=== PATIENT | male | born 1950 | race Caucasian/White ===

== ENCOUNTER → 2018-12-04 16:26 | Outpatient (CLI) | payer MEDICARE, OTHER, SELFPAY ==
[2018-12-04 18:22] LABS: Hematocrit 44.3 % (40-54); Mean Corp Hgb Conc 33.9 g/dL (32-36); Mean Corpuscular Hgb 30.9 pg (27.0-32.0); Mean Corpuscular Volume 91.2 fL (80-94); Mean Platelet Vol. 11.3 fl (6.2-12.0); Platelet Count 178 K/mm3 (150-450); RBC Distribution Width CV 12.9 % (11.6-14.6); RBC Distribution Width SD 42.9 fl (35.1-43.9); Red Blood Count 4.86 M/mm3 (4.6-6.2); White Blood Count 7.4 K/mm3 (4.4-11.0)
[2018-12-04 18:44] LABS: BUN 16 mg/dL (7-18); Glucose 88 mg/dL (74-106)
[2018-12-04 18:45] LABS: Anion Gap 3 (5-15); BUN/Creat Ratio 16.1 RATIO (10-20); Chloride 107 mmol/L (98-107); EST Glomerular Filtration Rate 79 mL/min (>60); Est Glom Filt Rate - Afr Amer 95 mL/min (>60); PSA,Total - Annual Screen 1.46 ng/mL (0.00-4.00); Potassium 5.4 mmol/L (3.5-5.1); Sodium Level 135 mmol/L (136-145)
== END ==
PROVIDERS: Family Provider Family Medicine; PCP Family Medicine; Visit Provider Family Medicine
DX: Z13.220 Encounter for screening for lipoid disorders (principal); Z12.5 Encounter for screening for malignant neoplasm of prostate; J44.9 Chronic obstructive pulmonary disease, unspecified
CPT/HCPCS: 36415; 80048; 84153; 85027; G0103

== ENCOUNTER → 2019-01-03 10:45 | Outpatient (CLI) | payer MEDICARE, OTHER, SELFPAY ==
[2019-01-03 09:52] VITALS: BMI 20.2
[2019-01-03 12:10] LABS: AST(SGOT) 19 U/L (15-37); Alanine Aminotransfer ALT/SGPT 17 U/L (16-61); Albumin, Serum 3.7 g/dL (3.2-5.0); Alkaline Phosphatase 90 U/L (45-117); Bilirubin, Direct 0.14 mg/dL (0.00-0.30); Cholesterol 178 mg/dL (200); Globulin 3.9 g/dL (2.2-4.2); High Density Lipoprotein 50 mg/dL; Protein, Total 7.6 g/dL (6.4-8.2); Triglycerides 80 mg/dL; Very Low Density Lipoprotein 16 mg/dL (5-40)
== END ==
PROVIDERS: Family Provider Family Medicine; PCP Family Medicine; Referring Provider Internal Medicine Cardiovascular Disease; Visit Provider Internal Medicine Cardiovascular Disease
DX: R94.31 Abnormal electrocardiogram [ECG] [EKG] (principal); F17.200 Nicotine dependence, unspecified, uncomplicated
CPT/HCPCS: 36415; 80061; 80076

== ENCOUNTER → 2019-02-12 07:50 | Outpatient (CLI) | payer MEDICARE, OTHER, SELFPAY ==
[2019-01-03 09:52] VITALS: BMI 20.2
--- NOTE | 2019-02-12 07:51 | ECHOD_ITS ---
Reason For Study: ARRHYTHMIA Procedure This was a 2D Doppler, Color Flow transthoracic echocardiogram. Exam performed in department. Left Ventricle Normal LV size. Left ventricular systolic function is normal. The estimated ejection fraction is 60 %. Stage 1 diastolic dysfunction. No regional wall motion abnormalities noted. Right Ventricle Normal RV size. Normal systolic function. Atria Normal left atrium. Normal right atrium. Mitral Valve Normal mitral valve. Tricuspid Valve Normal tricuspid valve. Aortic Valve Normal aortic valve. Pulmonic Valve Normal pulmonic valve. Great Vessels Normal aortic root. The pulmonary artery is normal size. Normal inferior vena cava. Pericardium/Pleural No pericardial effusion. MMode/2D Measurements & Calculations LVIDd: 4.5 cm IVSd: 0.79 cm Ao root diam: 3.4 cm LVIDs: 3.2 cm LVPWd: 0.79 cm RVDd: 3.3 cm FS: 29.0 % LAV(MOD-bp): 45.9 ml LA A4 area: 15.2 cm2 LA dimension(2D): 2.7 cm LAV(MOD-bp) Indexed: 25.5 ml/m2 LAV(MOD-sp2): 59.1 ml LAV(MOD-sp4): 35.9 ml RA A4 area: 15.0 cm2 Time Measurements MV dec time: 0.37 sec Doppler Measurements & Calculations MV E max yuriy: 41.0 cm/sec Lat Peak E' Yuriy: 10.8 cm/sec Med Peak E' Yuriy: 8.8 cm/sec MV A max yuriy: 35.2 cm/sec E/E' lat: 3.8 E/E' med: 4.6 MV E/A: 1.2 Ao V2 max: 93.5 cm/sec LV V1 max: 78.7 cm/sec TR max yuriy: 195.2 cm/sec Ao max P.5 mmHg LV V1 max P.5 mmHg TR max P.4 mmHg Interpretation Summary Normal LV size. Left ventricular systolic function is normal. The estimated ejection fraction is 60 %. Stage 1 diastolic dysfunction. Structurally normal valves. Ordering Physician: Rubén Catherine Referring Physician: NATIVIDAD FIGUEROA Performed By: Patricia Baeza, KANE, RVT
--- NOTE | 2019-02-12 19:17 | STRESSREP_ITS ---
Stress Test Report Exercise myocardial perfusion stress test. 68-year-old man with a history of coronary artery risk factors. Exercise myocardial perfusion stress test. Resting EKG demonstrates normal sinus rhythm with a rate of 51 bpm normal intervals are noted resting blood pressures 106/70 mmHg. The patient exercised according to regular Kb protoc ol for total duration of 9 minutes and 15 seconds completing 15 seconds into stage IV of the Kb protocol. The maximum heart rate attained was 136 bpm which was 90% of maximum predicted heart rate the maximum workload was 10.5 metabolic equivalents. At rest there were no ST or T wave changes noted suggest ischemia peak exercise upsloping ST changes only were noted with no meet the criteria for ischemia. The resting blood pressures 106/70 mmHg with a peak blood pressure 162/80 mmHg the rate pressure product was 20,800. No clinical angina was noted the patient was noted to be short of breath and the test was terminated due to attainment of target heart rate. Myocardial perfusion protocol. 11.0 mCi of technetium 99m sestamibi was injected at rest. Patient exercised for 9 minutes and 15 seconds and at peak exercise 32.0 mCi of technetium 99m sestamibi was injected stress images were obtained stress and rest images were reconstructed in comparing the short axis vertical and horizontal long axis. Gated images were also obtained Perfusion SPECT analysis: Review of the stress images demonstrate normal uptake of tracer noted in all areas of myocardium the resting images similar demonstrate normal uptake of tracer noted in all areas of the myocardium. No areas of reversibility are noted suggest ischemia no previous infarct is noted. Gated SPECT analysis: The gated ejection fraction is noted to be 71%. Conclusion: Normal exercise myocardial perfusion stress test with no evidence of ischemia at a high workload. Excellent functional capacity. No clinical angina noted.
== END ==
PROVIDERS: Family Provider Family Medicine; PCP Family Medicine; Referring Provider Internal Medicine Cardiovascular Disease; Visit Provider Internal Medicine Cardiovascular Disease
DX: I25.10 Atherosclerotic heart disease of native coronary artery without angina pectoris (principal); R94.31 Abnormal electrocardiogram [ECG] [EKG]; F17.200 Nicotine dependence, unspecified, uncomplicated
CPT/HCPCS: 78452; 93017; 93306; A9500; A4216

== ENCOUNTER → 2019-03-02 07:51 | Outpatient (CLI) | payer MEDICARE, OTHER, SELFPAY ==
[2019-01-03 09:52] VITALS: BMI 20.2
--- NOTE | 2019-03-02 07:53 | CT_ITS ---
STUDY: LOW DOSE CT LUNG CANCER SCREENING REASON FOR EXAM: Male, 68 years old. Patient smokes 1 pack per day for 50 years. Shortness of breath. Occasional chest pain. RADIATION DOSAGE (If Supplied By Facility): CTDIvol = ( 3.02 ) mGy, DLP = ( 129.83 ) mGycm TECHNIQUE: No contrast was administered. Low dose technique was utilized (average mAS-38 and kVp 120). 1.25 mm axial source images with a slice interval of 1.25-mm were reconstructed in lung windows. 2.5 mm axial source images with a slice interval of 2.5-mm were reconstructed in lung windows. 5.0 mm axial source images with a slice interval of 5.0-mm were reconstructed in soft tissue windows. Nodule measured using lung windows on PACS and/or independent workstation with automated measurement of minimum and maximum diameter. Nodule measurement reported as average diameter rounded to the nearest whole number. Growth is defined as an increase ins size of greater than 1.5 mm. COMPARISON: Comparison is made with prior study dated January 06, 2015. NODULES: Stable scarring with bronchiectasis in the upper lobes slightly more prominent on the left side. Stable 7 mm nodule in the medial aspect of the left upper lobe as seen on axial image #47. Stable 8.4 mm nodule along the posterior aspect of the left upper lobe as seen on axial image #49. These most likely represent focal areas of fibrosis. Enlargement of the thyroid gland. Emphysema: Hyperinflation. Emphysematous changes with bullous formation more prominent in the upper lobes. Endobronchial lesion: None Aorta: Atherosclerotic plaque formation of the aortic arch. Coronary arteries: Coronary artery calcification. Heart: Unremarkable Mediastinal nodes: Small mediastinal lymph nodes. Other chest and abdominal findings: CT/Low Dose CT Lung Screening IMPRESSION: Lung-RADS category 2 - Continue annual screening with LDCT in 12 months. IMPORTANT NOTES FOR USE: ACR Lung-RADS Version 1.0 Assessment Categories Release Date: August 20, 2013 Category: Coded 0-4 bases on nodule(s) with highest degree of suspicion. Negative screen is defined as categories 1 and 2; a positive screen is defined as categories 3 and 4. Category 3 and 4A nodules that are unchanged on interval CT should be coded as category 2, and individuals returned to screening in 12 months. Category 4X: Category 3 or 4 nodules with additional imaging findings that increase the suspicion of lung cancer, such as spiculation, GGN that doubles in size in 1 year, enlarged lymph notes, etc. Category Modifiers: S (significant finding unrelated to lung cancer) and C (prior history of treated lung cancer) may be added to the 0-4 Lung-RADS Electronically Signed: Santana Jeronimo, at 13:09 EST , Service support ,
== END ==
PROVIDERS: Family Provider Family Medicine; PCP Family Medicine; Referring Provider Family Medicine; Visit Provider Family Medicine
DX: Z12.2 Encounter for screening for malignant neoplasm of respiratory organs (principal); Z87.891 Personal history of nicotine dependence; R06.02 Shortness of breath
CPT/HCPCS: G0297

== ENCOUNTER → 2019-03-09 11:51 | Outpatient (CLI) | payer MEDICARE, OTHER, SELFPAY ==
[2019-01-03 09:52] VITALS: BMI 20.2
--- NOTE | 2019-03-09 11:54 | US_ITS ---
STUDY: THYROID ULTRASOUND REASON FOR EXAM: Male, 68 years old. Thyromegaly TECHNIQUE: Ultrasound evaluation of the thyroid was performed with real-time and static wilson-scale imaging. COMPARISON: None. FINDINGS: RIGHT LOBE: The right lobe of the thyroid gland measures 6.1 x 2.9 x 3.1 cm. There is a homogeneous echotexture. There are no demonstrated solid, cystic or complex lesions. LEFT LOBE: The left lobe of the thyroid gland measures 6.0 x 2.3 x 3.2 cm. There is a homogeneous echotexture. There are no demonstrated solid, cystic or complex lesions. ISTHMUS: The isthmus measures 5 mm. The regional lymph nodes are normal. US/Thyroid IMPRESSION: Enlargement of the thyroid without nodules. Electronically Signed: Mike Downs DO at 9:17 EST Tel [phone], Service support ,
== END ==
PROVIDERS: Family Provider Family Medicine; PCP Family Medicine; Referring Provider Family Medicine; Visit Provider Family Medicine
DX: E01.0 Iodine-deficiency related diffuse (endemic) goiter (principal)
CPT/HCPCS: 76536

== ENCOUNTER → 2019-04-04 14:31 | Outpatient (CLI) | payer MEDICARE, OTHER, SELFPAY ==
[2019-04-04 14:36] LABS: Bacteria 0 SEEN /hpf (None Seen); Mucous, Urine 0 SEEN /hpf (<or=2+); Red Blood Cells-Urine 0 SEEN /hpf (0-5); Squamous Epithelial Cells - UA 0 SEEN /hpf (0-5); White Blood Cells 0 SEEN /hpf (0-5)
[2019-04-04 15:52] LABS: Absolute Lymphocyte Count 3.49 X10^3/uL (0.83-4.51); Absolute Neutrophil Count 3.4 X10^3/uL (2.0-7.7); Basophil# 0.05 X10^3/uL; Basophil% 0.6 % (0-1); Eosinophil# 0.24 X10^3/uL; Hematocrit 44.6 % (40-54); Hemoglobin 14.9 g/dL (13.0-16.5); Lymphocyte # 3.49 X10^3/ul (4.0); Lymphocyte % 44.3 % (19-41); Mean Corp Hgb Conc 33.4 g/dL (32-36); Mean Corpuscular Hgb 30.4 pg (27.0-32.0); Mean Platelet Vol. 11.4 fl (6.2-12.0); Monocyte# 0.68 X10^3/uL; Monocyte% 8.6 % (0-10); NRBC Flagged by Analyzer 0 % (0-5); Neutrophil # 3.39 X10^3/uL (2.7-7.7); Neutrophil % 43.2 % (47-70); Platelet Count 177 K/mm3 (150-450); RBC Distribution Width SD 43.2 fl (35.1-43.9); White Blood Count 7.9 K/mm3 (4.4-11.0)
[2019-04-04 16:23] LABS: ALB/GLOB Ratio 1.1 RATIO (0.9-2.4); AST(SGOT) 22 U/L (15-37); Alanine Aminotransfer ALT/SGPT 18 U/L (16-61); Albumin, Serum 3.7 g/dL (3.2-5.0); Alkaline Phosphatase 75 U/L (45-117); Anion Gap 6 (5-15); BUN 13 mg/dL (7-18); BUN/Creat Ratio 14.5 RATIO (10-20); Calcium,Total 8.7 mg/dL (8.5-10.1); Chloride 107 mmol/L (98-107); Cholesterol 146 mg/dL (200); EST Glomerular Filtration Rate 89 mL/min (>60); Est Glom Filt Rate - Afr Amer 108 mL/min (>60); Globulin 3.5 g/dL (2.2-4.2); Glucose 80 mg/dL (74-106); High Density Lipoprotein 53 mg/dL; Potassium 4.1 mmol/L (3.5-5.1); Protein, Total 7.2 g/dL (6.4-8.2); Sodium Level 138 mmol/L (136-145); T4 Free Direct 1.13 ng/dL (0.76-1.46); Thyroid Stim Hormone (TSH) 0.53 uIU/mL (0.358-3.74); Triglycerides 74 mg/dL; Very Low Density Lipoprotein 15 mg/dL (5-40)
[2019-04-04 18:01] LABS: Color, Urine Yellow (Yellow); Glucose, Dipstick Normal (Normal); Ketone-Dipstick Negative (Negative); Leukocyte Esterase-Dipstick Negative /ul (Negative); Nitrite-Dipstick Negative (Negative); Occult Blood-Urine Negative /ul (Negative); Protein-Dipstick Negative (Negative); Urine Bilirubin Dipstick Negative (Negative); Urine Clarity Clear (Clear); Urine Urobilinogen Normal (Normal)
[2019-04-06 17:07] LABS: Anti-Thyroglobulin AB < 1.0 IU/mL (0.0-0.9); Thyroglobulin, Serum Qt. 21.7 ng/mL (1.4-29.2); Thyroid Peroxidase AB 12 IU/mL (0-34)
== END ==
PROVIDERS: Family Provider Family Medicine; PCP Family Medicine; Referring Provider Family Medicine; Visit Provider Family Medicine
DX: E01.0 Iodine-deficiency related diffuse (endemic) goiter (principal); I65.29 Occlusion and stenosis of unspecified carotid artery; F17.200 Nicotine dependence, unspecified, uncomplicated; J44.9 Chronic obstructive pulmonary disease, unspecified
CPT/HCPCS: 36415; 80053; 80061; 81001; 84432; 84439; 84443; 85025; 86376; 86800

== ENCOUNTER → 2019-05-31 13:55 | Outpatient (CLI) | payer MEDICARE, SELFPAY ==
[2019-05-31 16:05] LABS: Cholesterol 161 mg/dL (200); High Density Lipoprotein 52 mg/dL; Triglycerides 68 mg/dL; Very Low Density Lipoprotein 14 mg/dL (5-40)
== END ==
PROVIDERS: PCP Family Medicine; Referring Provider Family Medicine; Visit Provider Family Medicine
DX: I65.29 Occlusion and stenosis of unspecified carotid artery (principal)
CPT/HCPCS: 36415; 80061

== ENCOUNTER → 2019-10-22 10:22 | Outpatient (CLI) | payer MEDICARE, SELFPAY ==
[2019-10-22 10:26] LABS: Bacteria 0 SEEN /hpf (None Seen); Red Blood Cells-Urine 0 SEEN /hpf (0-5); Squamous Epithelial Cells - UA 0 SEEN /hpf (0-5); White Blood Cells 0 SEEN /hpf (0-5)
[2019-10-22 12:05] LABS: Absolute Lymphocyte Count 2.86 X10^3/uL (0.83-4.51); Absolute Neutrophil Count 4.1 X10^3/uL (2.0-7.7); Basophil# 0.03 X10^3/uL; Basophil% 0.4 % (0-1); Eosinophil# 0.35 X10^3/uL; Eosinophils% 4.3 % (0-5); Hematocrit 46.7 % (40-54); Hemoglobin 15.7 g/dL (13.0-16.5); Lymphocyte # 2.86 X10^3/ul (4.0); Mean Corp Hgb Conc 33.6 g/dL (32-36); Mean Corpuscular Hgb 31.1 pg (27.0-32.0); Mean Corpuscular Volume 92.5 fL (80-94); Mean Platelet Vol. 11.9 fl (6.2-12.0); Monocyte# 0.79 X10^3/uL; Monocyte% 9.7 % (0-10); NRBC Flagged by Analyzer 0 % (0-5); Neutrophil # 4.11 X10^3/uL (2.7-7.7); Neutrophil % 50.2 % (47-70); Platelet Count 150 K/mm3 (150-450); RBC Distribution Width SD 43.4 fl (35.1-43.9); Red Blood Count 5.05 M/mm3 (4.6-6.2); White Blood Count 8.2 K/mm3 (4.4-11.0)
[2019-10-22 12:17] LABS: AST(SGOT) 18 U/L (15-37); Alanine Aminotransfer ALT/SGPT 20 U/L (16-61); Albumin, Serum 3.6 g/dL (3.2-5.0); Alkaline Phosphatase 77 U/L (45-117); Anion Gap 4 (5-15); BUN 13 mg/dL (7-18); Chloride 105 mmol/L (98-107); Cholesterol 137 mg/dL (200); Creatinine, Serum 0.93 mg/dL (0.70-1.30); EST Glomerular Filtration Rate 86 mL/min (>60); Est Glom Filt Rate - Afr Amer 103 mL/min (>60); Globulin 3.7 g/dL (2.2-4.2); Glucose 92 mg/dL (74-106); High Density Lipoprotein 45 mg/dL; Potassium 4.1 mmol/L (3.5-5.1); Protein, Total 7.3 g/dL (6.4-8.2); Sodium Level 137 mmol/L (136-145); Triglycerides 80 mg/dL; Very Low Density Lipoprotein 16 mg/dL (5-40)
[2019-10-22 15:38] LABS: Color, Urine Yellow (Yellow); Glucose, Dipstick Normal (Normal); Ketone-Dipstick 5 mg/dl (Negative); Leukocyte Esterase-Dipstick Negative /ul (Negative); Nitrite-Dipstick Negative (Negative); Occult Blood-Urine Negative /ul (Negative); Protein-Dipstick Negative (Negative); Urine Bilirubin Dipstick Negative (Negative); Urine Clarity Clear (Clear); Urine Urobilinogen Normal (Normal)
[2019-10-22 15:45] LABS: Mucous, Urine 1+ /hpf (<or=2+)
== END ==
PROVIDERS: PCP Family Medicine; Visit Provider Family Medicine
DX: I65.29 Occlusion and stenosis of unspecified carotid artery (principal); F17.200 Nicotine dependence, unspecified, uncomplicated
CPT/HCPCS: 80053; 80061; 81001; 85025

== ENCOUNTER → 2020-02-13 08:51 | Outpatient (CLI) | payer MEDICARE, SELFPAY ==
--- NOTE | 2020-02-13 08:52 | AAVD_ITS ---
Reason For Study: AAA Aorta Measurements Aorta Doppler Measurements Proximal aorta measures2.0 X 2.3cm. in cross- Peak systolic flow velocities within the proximal sectional axis. aorta measure 85 cm/sec. Proximal aorta measures2.3cm. in longitudinal Peak systolic flow velocities within the mid aorta axis. measure 60 cm/sec. Mid aorta measures2.4 X 2.4cm. in cross-sectional Peak systolic flow velocities within the distal axis. aorta measure 20 cm/sec. Mid aorta measures2.3cm. in longitudinal axis. Distal aorta measures4.0 X 4.2cm. in cross- sectional axis. Distal aorta measures4.0cm. in longitudinal axis. Left Iliac Artery Left iliac artery measures 1.2 X 1.2 cm. in the longitudinal axis. Left iliac artery measures 1.2 cm. in the cross-sectional axis. Peak systolic velocity in the left iliac artery measures 359 cm/sec. Right Iliac Artery Right iliac artery measures 1.4 X 1.4 cm. in the longitudinal axis. Right iliac artery measures 1.3 cm. in the cross-sectional axis. Peak systolic velocity in the right iliac artery measures 282 cm/sec. Procedure Aorta IVC Iliac vasculature or bypass grafts [id number]. Exam performed in department. Interpretation Summary Distal aortic aneurysm 4 x 4.2 cm. Normal aortic velocities. Left common iliac 1.2 x 1.2 cm diameter with turbulence and increased velocity Right common iliac 1.4 x 1.4 cm diameter with turbulence and increased velocity Previous aortic dimension on January 22, 2019 was 1.85 x 3.23 cm diameter Ordering Physician: Tani Galvan Referring Physician: NATIVIDAD MENDOZA Performed By: Patricia Baeza, RDCS, RVT
--- NOTE | 2020-02-13 08:52 | CDU_ITS ---
Reason For Study: STENOSIS Rt. Velocities/BP Lt. Velocities/BP Prox CCA 127/30 cm/sec. Prox CCA 134/32 cm/sec. Mid CCA 114/33 cm/sec. Mid CCA 94/21 cm/sec. Dist CCA 112/28 cm/sec. Dist CCA 79/24 cm/sec. Prox ICA 74/26 cm/sec. Prox ICA 85/34 cm/sec. Mid ICA 64/31 cm/sec. Mid ICA 82/38 cm/sec. Dist ICA 63/30 cm/sec. Dist ICA 69/32 cm/sec. Rt. ICA/CCA = .7. Lt. ICA/CCA = .9. Prox ECA 67/13 cm/sec. Prox ECA 102/25 cm/sec. Rt. Vert. 48/25 cm/sec. Lt. Vert. 46/14 cm/sec. Right Extracranial There is homogeneous, smooth atherosclerotic plaque noted in the right common carotid artery. There is no significant atherosclerotic plaque noted in the right internal carotid artery. There is no significant atherosclerotic plaque noted in the right external carotid artery. Antegrade flow is noted in the right vertebral artery. Left Extracranial There is homogeneous, smooth atherosclerotic plaque noted in the left common carotid artery. There is intimal thickening but no significant atherosclerotic plaque noted in the left internal carotid artery. There is heterogeneous, irregular atherosclerotic plaque noted in the left external carotid artery. Antegrade flow is noted in the left vertebral artery. Procedure Carotid Duplex [id number]. Exam performed in department. Interpretation Summary No hemodynamically significant plaque right extracranial internal carotid artery with less than 50% stenosis <50% stenosis right external carotid Irregular heterogenous plaque at the proximal left internal carotid artery with less than 50% stenosis <50% stenosis left external carotid Patent and antegrade vertebrals bilaterally Ordering Physician: Tani Galvan Referring Physician: NATIVIDAD MENDOZA Performed By: Patricia Baeza, DENITACS, RVT
== END ==
PROVIDERS: PCP Family Medicine; Referring Provider Surgery; Visit Provider Surgery
DX: I71.4 Abdominal aortic aneurysm, without rupture (principal); I65.22 Occlusion and stenosis of left carotid artery
CPT/HCPCS: 93880; 93978

== ENCOUNTER → 2020-02-19 18:16 | Outpatient (CLI) | payer MEDICARE, SELFPAY | PROVIDERS: PCP Family Medicine; Referring Provider Nurse Practitioner Family; Visit Provider Nurse Practitioner Family | DX: Z20.828 Contact with and (suspected) exposure to other viral communicable diseases (principal) | CPT/HCPCS: 87635; U0003 ==

== ENCOUNTER → 2020-03-12 14:55 | Outpatient (CLI) | payer MEDICARE, SELFPAY ==
[2020-03-11 08:44] VITALS: BMI 21.1
--- NOTE | 2020-03-12 14:57 | RAD_ITS ---
HISTORY: CHRONIC NECK PAIN, NO KNOWN INJURY, PAIN RADIATES TO LEFT SHOULDER ADDITIONAL HISTORY: None provided. EXAMINATION/TECHNIQUE: XR Spine Cervical 2 or 3 Views Number of images including paperwork: 3 COMPARISON: None FINDINGS: VERTEBRAE: No acute fracture. VERTEBRAL ALIGNMENT: No traumatic subluxation. DISKS AND JOINTS: Mild disc space narrowing is noted at C5-6 and C6-7. Small osteophytes. Facet arthropathy and uncovertebral degenerative changes. SOFT TISSUES: Unremarkable paraspinous soft tissues. RAD/Cerv Spine 2 or 3 Views IMPRESSION: No acute findings. Cervical spondylosis. at 0527 Reported and signed by: Sil Traore MD Electronically Signed: Sil Traore MD at 5:26 EST Tel , Service support ,
== END ==
PROVIDERS: PCP Family Medicine; Referring Provider Family Medicine; Visit Provider Family Medicine
DX: M54.2 Cervicalgia (principal)
CPT/HCPCS: 72040

== ENCOUNTER → 2020-04-30 08:29 | Outpatient (CLI) | payer MEDICARE, SELFPAY ==
[2020-03-11 08:44] VITALS: BMI 21.1
[2020-04-30 08:34] LABS: Bacteria 0 SEEN /hpf (None Seen); Red Blood Cells-Urine 0 SEEN /hpf (0-5)
[2020-04-30 10:43] LABS: AST(SGOT) 25 U/L (15-37); Alanine Aminotransfer ALT/SGPT 26 U/L (16-61); Albumin, Serum 3.5 g/dL (3.2-5.0); Alkaline Phosphatase 79 U/L (45-117); Anion Gap 5 (5-15); BUN 18 mg/dL (7-18); BUN/Creat Ratio 17.8 RATIO (10-20); Calcium,Total 8.5 mg/dL (8.5-10.1); Chloride 108 mmol/L (98-107); Cholesterol 109 mg/dL (200); Creatinine, Serum 1.01 mg/dL (0.70-1.30); EST Glomerular Filtration Rate 77 mL/min (>60); Est Glom Filt Rate - Afr Amer 94 mL/min (>60); Globulin 3.4 g/dL (2.2-4.2); Glucose 92 mg/dL (74-106); High Density Lipoprotein 53 mg/dL; Potassium 4.1 mmol/L (3.5-5.1); Protein, Total 6.9 g/dL (6.4-8.2); Sodium Level 138 mmol/L (136-145); Triglycerides 46 mg/dL; Very Low Density Lipoprotein 9 mg/dL (5-40)
[2020-04-30 11:31] LABS: Absolute Neutrophil Count 3.4 X10^3/uL (2.0-7.7); Basophil# 0.05 X10^3/uL; Basophil% 0.6 % (0-1); Eosinophil# 0.53 X10^3/uL; Hemoglobin 14.5 g/dL (13.0-16.5); Lymphocyte % 44.5 % (19-41); Mean Corpuscular Hgb 30.1 pg (27.0-32.0); Mean Corpuscular Volume 91.3 fL (80-94); Mean Platelet Vol. 11.3 fl (6.2-12.0); Monocyte# 0.89 X10^3/uL; Monocyte% 10.1 % (0-10); NRBC Flagged by Analyzer 0 % (0-5); Neutrophil # 3.38 X10^3/uL (2.7-7.7); Neutrophil % 38.6 % (47-70); Platelet Count 178 K/mm3 (150-450); RBC Distribution Width CV 12.9 % (11.6-14.6); RBC Distribution Width SD 43.5 fl (35.1-43.9); Red Blood Count 4.82 M/mm3 (4.6-6.2); White Blood Count 8.8 K/mm3 (4.4-11.0)
[2020-04-30 13:08] LABS: Color, Urine Yellow (Yellow); Glucose, Dipstick Normal (Normal); Ketone-Dipstick 5 mg/dl (Negative); Leukocyte Esterase-Dipstick Negative /ul (Negative); Nitrite-Dipstick Negative (Negative); Occult Blood-Urine Negative /ul (Negative); Protein-Dipstick 15 mg/dl (Negative); Specific Gravity, Urine 1.025 (1.002-1.030); Urine Bilirubin Dipstick Negative (Negative); Urine Clarity Clear (Clear); Urine Urobilinogen Normal (Normal)
[2020-04-30 14:12] LABS: Mucous, Urine 3+ /hpf (<or=2+); Squamous Epithelial Cells - UA 0-5 SEEN /hpf (0-5); White Blood Cells 0-5 SEEN /hpf (0-5)
== END ==
PROVIDERS: PCP Family Medicine; Referring Provider Family Medicine; Visit Provider Family Medicine
DX: F17.200 Nicotine dependence, unspecified, uncomplicated (principal); I65.29 Occlusion and stenosis of unspecified carotid artery
CPT/HCPCS: 36415; 80053; 80061; 81001; 85025

== ENCOUNTER → 2020-07-14 08:23 | Outpatient (CLI) | payer MEDICARE, SELFPAY ==
[2020-03-11 08:44] VITALS: BMI 21.1
--- NOTE | 2020-07-14 08:25 | CT_ITS ---
STUDY: CTA OF THE ABDOMINAL AORTA AND BILATERAL LOWER EXTREMITIES REASON FOR EXAM: Male, 69 years old. History of abdominal aortic aneurysm. TECHNIQUE: Axial CT angiography multi-detector data acquisition was obtained from the dome of the liver to the level of the ankles following intravenous administration of ml of 100mL Isovue-370 contrast. Axial images and MIP images were reconstructed from the axial data set. Post-processing of the angiographic images was performed, with multiplanar reformation and 3D reconstruction. TECHNICAL QUALITY: Good COMPARISON: None. Descriptors of Narrowing: None (0%) Mild (< 50%) Moderate (50-70%) Severe (70-90%) Subtotal/Total Occlusion (90-100%) Non-Evaluable (technically non-diagnostic) FINDINGS: Abdominal aorta: Saccular infrarenal abdominal aortic aneurysm with a transverse dimension of 4.4 cm. There is evidence of mural thrombus. Celiac and superior mesenteric arteries: No demonstrated narrowing. Inferior mesenteric artery: Not visualized Right renal artery(arteries): Stenotic calcific plaque at the origin of the right renal artery. Left renal artery(arteries): Stenotic calcific plaque at the origin of the left renal artery. Right common iliac artery: Mild degree of the nonstenotic calcific plaques. Right external iliac artery: No demonstrated narrowing. Right internal iliac artery: No demonstrated narrowing. Left common iliac artery: Nonstenotic calcific plaque. Left external iliac artery: No demonstrated narrowing. Left internal iliac artery: No demonstrated narrowing. RIGHT LOWER EXTREMITY Right common femoral artery: No demonstrated narrowing. Right profundus femoris: No demonstrated narrowing. Right superficial femoral: No demonstrated narrowing. Right popliteal artery: No demonstrated narrowing. Right tibioperoneal trunk: No demonstrated narrowing. Right anterior tibial artery: No demonstrated narrowing. Right posterior tibial artery: No demonstrated narrowing. Right peroneal artery: No demonstrated narrowing. LEFT LOWER EXTREMITY Left common femoral artery: No demonstrated narrowing. Left profundus femoris: No demonstrated narrowing. Left superficial femoral: No demonstrated narrowing. Left popliteal artery: No demonstrated narrowing. Left tibioperoneal trunk: No demonstrated narrowing. Left anterior tibial artery: No demonstrated narrowing. Left posterior tibial artery: No demonstrated narrowing. Left peroneal artery: No demonstrated narrowing. CT/CTA Abd w/Runoff W/WO Contrast IMPRESSION: Fusiform infrarenal abdominal aortic aneurysm with a transverse dimension of 4.4 cm. Mural thrombus is seen. Electronically Signed: Santana Jeronimo MD at 10:46 EDT , Service support ,
[2020-07-14 08:41] LABS: CREATININE FINGERSTICK 1.2 mg/dL (0.70-1.30); EGFR FINGERSTICK > 60.0000 mL/min (>60)
== END ==
PROVIDERS: PCP Family Medicine; Referring Provider Surgery; Visit Provider Surgery
DX: I71.4 Abdominal aortic aneurysm, without rupture (principal)
CPT/HCPCS: 75635; Q9967

== ENCOUNTER → 2020-08-04 07:19 | Outpatient (CLI) | payer MEDICARE, SELFPAY ==
[2020-07-18 12:53] VITALS: BMI 22.6
--- NOTE | 2020-08-04 13:22 | STRESSREP_ITS ---
Stress Test Report Exercise myocardial perfusion stress test. 69-year-old man for preoperative evaluation. Stress protocol: Resting EKG demonstrates sinus bradycardia with a rate of 52 bpm normal intervals are noted resting blood pressure is 112/76 mmHg. The patient exercised according to the regular Kb protocol for a total duration of 9 minutes completing stage III of the Kb protocol. The maximum heart rate attained was 137 bpm which was 91% of max impacted heart rate the maximum workload was 10.4 metabolic equivalents. At rest there were no ST or T wave changes noted to suggest ischemia and at peak exercise upsloping ST changes only were noted with did not meet the criteria for ischemia. Occasional premature ventricular complexes were noted the test was terminated due to dyspnea. No clinical angina was noted. The peak blood pressure was 160/70 mmHg rate- pressure product was 20,200. Myocardial perfusion protocol. 10.6 mCi of technetium 99m sestamibi was injected at rest. The patient exercised according to regular Kb protocol and at peak exercise 32.0 mCi of technetium 99m sestamibi was injected stress images were obtained stress and rest images were reconstructed and compared in the short axis vertical long horizontal long axis. Gated images were also obtained. Perfusion SPECT analysis: Review of the stress images demonstrate normal uptake of tracer noted in all areas of the myocardium. The resting images similar demonstrate normal uptake of tracer noted in all areas of the myocardium. No areas of reversibility are noted suggest ischemia and no previous infarct is noted. Gated SPECT analysis: The gated ejection fraction is 63%. Conclusion: Normal exercise myocardial perfusion stress test at a high workload. Preserved ejection fraction. Excellent functional aerobic capacity.
== END ==
PROVIDERS: PCP Family Medicine; Referring Provider Nurse Practitioner Family; Visit Provider Nurse Practitioner Family
DX: Z01.810 Encounter for preprocedural cardiovascular examination (principal); I71.4 Abdominal aortic aneurysm, without rupture
CPT/HCPCS: 78452; 93017; A9500; A4216

== ENCOUNTER 2020-09-01 05:33 | Inpatient (IN) | payer MEDICARE, SELFPAY ==
[2020-07-18 12:53] VITALS: BMI 22.6
--- NOTE | 2020-08-25 14:13 | EKG12_ITS ---
Test Reason : PRE OP Blood Pressure : / mmHG Vent. Rate : 057 BPM Atrial Rate : 057 BPM P-R Int : 176 ms QRS Dur : 092 ms QT Int : 410 ms P-R-T Axes : 074 084 074 degrees QTc Int : 399 ms Sinus bradycardia Otherwise normal ECG Confirmed by IRMA STEPHEN, CARON ([id number]), offline editor NOLVIA LEMUS ([id number]) on 08/26/2020 11:18:50 AM Referred By: Tani Galvan Confirmed By:CARON SOLIS MD
[2020-08-25 14:57] LABS: Hemoglobin 14.3 g/dL (13.0-16.5); Mean Corp Hgb Conc 31.8 g/dL (32-36); Mean Corpuscular Hgb 29.8 pg (27.0-32.0); Mean Corpuscular Volume 93.8 fL (80-94); Mean Platelet Vol. 10.9 fl (6.2-12.0); Platelet Count 167 K/mm3 (150-450); RBC Distribution Width CV 12.6 % (11.6-14.6); RBC Distribution Width SD 43.8 fl (35.1-43.9); White Blood Count 8.4 K/mm3 (4.4-11.0)
[2020-08-25 15:30] LABS: Albumin, Serum 3.5 g/dL (3.2-5.0); Magnesium 2.2 mg/dL (1.6-2.6); Phosphorus 2.8 mg/dL (2.5-4.9)
[2020-08-25 15:33] LABS: Anion Gap 7 (5-15); BUN 14 mg/dL (7-18); BUN/Creat Ratio 15.1 RATIO (10-20); Calcium,Total 8.7 mg/dL (8.5-10.1); Chloride 105 mmol/L (98-107); Creatinine, Serum 0.93 mg/dL (0.70-1.30); EST Glomerular Filtration Rate 85 mL/min (>60); Est Glom Filt Rate - Afr Amer 103 mL/min (>60); Glucose 70 mg/dL (74-106); Potassium 4.1 mmol/L (3.5-5.1); Sodium Level 140 mmol/L (136-145)
[2020-08-28 14:12] VITALS: BMI 22.1
--- NOTE | 2020-08-29 10:29 | RAD_ITS ---
STUDY: X-RAY CHEST REASON FOR EXAM: Male, 69 years old. preop TECHNIQUE: PA and lateral views of the chest. COMPARISON: 11/12/2014 FINDINGS: The lungs are clear and expanded. There is no demonstrated pleural abnormality. Normal size heart. Normal mediastinum and kenyatta. Normal visualized pulmonary arteries. Normal visualized aortic arch and descending thoracic aorta. Normal visualized thoracic spine. Normal visualized ribs, clavicles, and shoulders. There is no demonstrated abnormality of the visualized soft tissue structures of the upper abdomen. RAD/Chest PA and Lateral IMPRESSION: Normal x-ray examination of the chest. Electronically Signed: Solitario Ivan MD at 10:04 EDT Tel , Service support ,
[2020-09-01] VITALS (28 sets, daily range): BP systolic 85–123; BP diastolic 52–85; PULSE 47–67; RESP 14–23; TEMP 36.1–36.7; O2SAT 91–100; BMI 22.0; BMI 23.4
--- NOTE | 2020-09-01 05:59 | PCM.HP.BLA ---
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 tablet 07/18/20 [History Confirmed 08/28/20] meloxicam 15 mg tablet 15 mg PO DAILY? tab 08/28/20 [History] [facility]LY [facility] Medical History? Abdominal aortic aneurysm (AAA) Basal cell carcinoma COPD (chronic obstructive pulmonary disease) History of stress test Left carotid artery stenosis Nicotine dependence Shortness of breath on exertion Wears glasses Surgical History? 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 Other Adopted Social History? Smoking Status:? Current every day smoker tobacco type: cigarettes? Tobacco: How many years used:? 50? HPI HPI HPI: JASMIN VENTURA, is a 69 M who presents to the office today for an update history and physical. Patient denies recent hospitalization of illnesses. Patient notes N/V with anesthesia. Patient denies cardiac and pulmonary history.? Patient's previous history per Dr. Galvan: JASMIN VENTURA, is a 69 M who presents to the office today for surgical consultation regarding his infrarenal abdominal aortic aneurysm.? He presents with his Janessa today. March 09, 2019 his infrarenal abdominal aortic aneurysm measured 3.2 cm.? February 18, 2020 it measured 4.2 cm.? July 14, 2020 it measures between 4.4 and 4.6 cm.? The patient has been a lifelong cigarette smoker and he does continue to smoke.? He denies any acute health problems.? No chest pain shortness of breath.? No weight change.? No abdominal pain or back pain.? He denies any vascular claudication.? He does state that at some point in the past he was evaluated by weigh boss Dr. Rubén Catherine. ?CTA [facility] Imaging Services [address] [place] [address] CTA Abd w/Runoff W/WO Contrast MR#:? [id number] Name: JASMIN VENTURARep #:[id number] :? 1950M 69 ? From:? Santana Jeronimo MD PCP:Dr. Natividad Mendoza MD? Status:REG CLI Study:CTA Abd w/Runoff W/WO Contrast? Date of Exam:07/14/20 Exam#[id number]? Ordering Dr:? Tani Galvan MD STUDY:? CTA OF THE ABDOMINAL AORTA AND BILATERAL LOWER EXTREMITIES REASON FOR EXAM: ? Male, 69 years old.? History of abdominal aortic aneurysm. TECHNIQUE: ? Axial CT angiography multi-detector data acquisition was obtained from the dome of the liver to the level of the ankles following intravenous administration of ml of 100mL Isovue-370 contrast.? Axial images and MIP images were reconstructed from the axial data set. Post-processing of the angiographic images was performed, with multiplanar reformation and 3D reconstruction. TECHNICAL QUALITY: ? Good COMPARISON: ? None. Descriptors of Narrowing: None (0%) Mild (< 50%) Moderate (50-70%) Severe (70-90%) Subtotal/Total Occlusion (90-100%) Non-Evaluable (technically non-diagnostic) FINDINGS: Abdominal aorta:? Saccular infrarenal abdominal aortic aneurysm with a transverse dimension of 4.4 cm.? There is evidence of mural thrombus. Celiac and superior mesenteric arteries:? No demonstrated narrowing. Inferior mesenteric artery:? Not visualized Right renal artery(arteries):? Stenotic calcific plaque at the origin of the right renal artery. Left renal artery(arteries):? Stenotic calcific plaque at the origin of the left renal artery. Right common iliac artery:? Mild degree of the nonstenotic calcific plaques. Right external iliac artery:? No demonstrated narrowing. Right internal iliac artery:? No demonstrated narrowing. Left common iliac artery:? Nonstenotic calcific plaque. Left external iliac artery:? No demonstrated narrowing. Left internal iliac artery:? No demonstrated narrowing. RIGHT LOWER EXTREMITY Right common femoral artery:? No demonstrated narrowing. Right profundus femoris:? No demonstrated narrowing. Right superficial femoral:? No demonstrated narrowing. Right popliteal artery:? No demonstrated narrowing. Right tibioperoneal trunk:? No demonstrated narrowing. Right anterior tibial artery:? No demonstrated narrowing. Right posterior tibial artery:? No demonstrated narrowing. Right peroneal artery:? No demonstrated narrowing. LEFT LOWER EXTREMITY Left common femoral artery:? No demonstrated narrowing. Left profundus femoris:? No demonstrated narrowing. Left superficial femoral:? No demonstrated narrowing. Left popliteal artery:? No demonstrated narrowing. Left tibioperoneal trunk:? No demonstrated narrowing. Left? anterior tibial artery:? No demonstrated narrowing. Left posterior tibial artery:? No demonstrated narrowing. Left peroneal artery:? No demonstrated narrowing. CT/CTA Abd w/Runoff W/WO Contrast IMPRESSION: Fusiform infrarenal abdominal aortic aneurysm with a transverse dimension of 4.4 cm.? Mural thrombus is seen. ? Electronically Signed: Santana Jeronimo MD at 10:46 EDT , Service support? , [facility] Cardiovascular Services [address] [place] [id number] Carotid Duplex Ultrasound 02/13/20 0915 MR#:? [id number] Name: JASMIN VENTURARep #:[id number] :? 1950? 69From: Tani Galvan MD Attending Dr: ? ? HERMINIA Saavedratatus:? REG CLI Ordering Dr:? aTni Galvan MDDate:? 02/13/20?? Location:CVSSex: Admitted:?? Reason For Study: STENOSIS Rt. Velocities/BP ? Lt. Velocities/BP Prox CCA 127/30 cm/sec. ? Prox CCA 134/32 cm/sec. Mid CCA 114/33 cm/sec.? Mid CCA 94/21 cm/sec. Dist CCA 112/28 cm/sec. ? Dist CCA 79/24 cm/sec. Prox ICA 74/26 cm/sec.? Prox ICA 85/34 cm/sec. Mid ICA 64/31 cm/sec. ? Mid ICA 82/38 cm/sec. Dist ICA 63/30 cm/sec.? Dist ICA 69/32 cm/sec. Rt. ICA/CCA = .7. ? Lt. ICA/CCA = .9. Prox ECA 67/13 cm/sec.? Prox ECA 102/25 cm/sec. Rt. Vert. 48/25 cm/sec. ? Lt. Vert. 46/14 cm/sec. Right Extracranial There is homogeneous, smooth atherosclerotic plaque noted in the right common carotid artery. There is no significant atherosclerotic plaque noted in the right internal carotid artery. There is no significant atherosclerotic plaque noted in the right external carotid artery. Antegrade flow is noted in the right vertebral artery. Left Extracranial There is homogeneous, smooth atherosclerotic plaque noted in the left common carotid artery. There is intimal thickening but no significant atherosclerotic plaque noted in the left internal carotid artery. There is heterogeneous, irregular atherosclerotic plaque noted in the left external carotid artery. Antegrade flow is noted in the left vertebral artery. Procedure Carotid Duplex [id number]. Exam performed in department. Interpretation Summary No hemodynamically significant plaque right extracranial internal carotid artery with less than 50% stenosis <50% stenosis right external carotid Irregular heterogenous plaque at the proximal left internal carotid artery with less than 50% stenosis <50% stenosis left external carotid Patent and antegrade vertebrals bilaterally Ordering Physician: Tani Galvan Referring Physician: NATIVIDAD MENDOZA Performed By: Patricia Baeza, DENITACS, RVT 02/13/20 1226 Date Tani Galvan MD ? ROS General General: No weight change, appetite, fatigue, colon cancer, breast cancer or weakness HEENT HEENT: No difficulty swallowing, eye injury, eye surgery, swollen glands or hoarseness Endo Endocrine: No thyroid disease, diabetes mellitus, thyroid cancer, Hair loss, heat intolerance or cold intolerance Skin Skin: No rash or changing moles Musc Musculoskeletal: No back problems, arthritis, rheumatoid arthritis, gout or joint pain Cardio Cardiovascular: No murmur, pacemaker, heart disease, atrial fibrillation, high blood pressure, heart attack, heart stent, palpitations, shortness of breat with exertion or chest pain Psych Psychiatric: No depression, anxiety or hearing voices Resp Respiratory: No shortness of breath, No sleep apnea, No cough, No COPD, No asthma, No emphysema and No wheezing Gastro Gastrointestinal: No abdominal pain, No nausea or vomiting, No diarrhea, No constipation, No blood in stool, No acid reflux, No hemorrhoids, No ulcers, No gallbladder problem and No black,tarry stools Johnson Hematologic: No blood thinners, No blood disorders, No bleeding, No anemia and No blood clots Neuro Neurologic: No weakness Exam Const General: cooperative, healthy appearing, comfortable and no acute distress HENKS Head: normal to inspection Eyes General: appearance normal, both eyes and all related structures Neck Neck: normal visual inspection Neck mass: No Resp Effort & Inspection: normal respiratory effort Auscultation: clear to auscultation bilaterally Cardio Rate: regular rate Rhythm: regular rhythm GI Inspection: normal to inspection Percussion: normal to percussion Auscultation: normal bowel sounds Skin General: no rashes or lesions noted Neuro General: no focal motor deficits and CN's II-XI intact bilaterally Extrem General: normal to inspection Psych Appearance: grossly normal Affect: normal affect Assessment and Plan Assessment and Plan (1) Abdominal aortic aneurysm (AAA):?Status:?Chronic ?Qualifiers: ?Presence of rupture:?without rupture? Qualified Code(s):?I71.4 - Abdominal aortic aneurysm, without rupture ?Plan - Evelyne CATALAN PA-C:? Dr. Galvan will plan to perform an abdominal aortic aneurysm repair with arterial line placement. Procedure details, risks and benefits have been reviewed with the patient. Patient has had the opportunity to ask and have questions answered. Patient verbally understands and agrees with the plan. Patient may remain on ASA.? Coding Level of Care Code No Charge Diagnoses Abdominal aortic aneurysm (AAA)? I71.4 ? ? ? Presence of rupture: without rupture I have re-examined the patient. There are no clinical changes since date of exam.
--- NOTE | 2020-09-01 06:38 | PCM.OPRPT ---
Problems Associated Problem List Diagnoses (1) Abdominal aortic aneurysm (AAA): Report of Operation Date of Procedure: 09/01/20 Pre-Operative Diagnosis: Infrarenal abdominal aortic aneurysm Post-Operative Diagnosis: Same Surgery/Procedure Performed:: Right radial arterial line placement Infrarenal abdominal aortic stent graft repair [place] excluder Main body device left groin 28.5 mm x 14.5 mm x 16 cm reference number RLT [id number], SN [id number], expiry date 01/22/2023 Right common femoral contralateral limb reference number PLC [id number], SN #[id number], expiry date 01/31/2023 Description of Surgical Findings:: Timeout and informed consent was obtained. At the bedside Scott test performed of the right wrist. Adequate ulnar flow identified. The right wrist was gently extended prepped with Betadine. Ultrasound was used to identify the right radial artery. Under ultrasound guidance a 20-gauge Arrow Angiocath was attempted but would not thread so I then switched over to a 20-gauge Angiocath under ultrasound guidance advanced into the right radial artery. I secured that in place with a 3-0 silk. A small piece of gauze was placed to help protect the skin. OpSite dressing applied. Bhavin wrap was applied. He tolerated procedure well hand was viable to completion good waveform was obtained no apparent complication. He was subsequently taken to the operating room for definitive surgery. Again timeout and informed consent was obtained. He was taken to the special procedures lab placed supine on the table. He underwent monitored anesthesia care. The abdomen and bilateral groins were sterilely prepped and draped. Under ultrasound guidance 2% lidocaine was instilled in each groin overlying the common femoral artery. Under ultrasound guidance a singlewall needle was inserted followed by Seldinger wire technique. 8 Sinhala sheath inserted. Then a J-wire was inserted. Using a Perclose device to precloses were placed in each groin. To date 8 o'clock position and 10 to 4 o'clock position bilaterally. Subsequently on the left I was able to in Glidewire into the proximal aorta. Using 15 cc of contrast per 15 cc injection through a pigtail catheter they placed at the level of the renals and was able to get a AP aortogram. Measurements were confirmed. I then placed an 035 Amplatz wire through the pigtail of the left. On the right I was able to get a 5 Sinhala Kumpe catheter and a 035 Glidewire past the area of right common iliac stenosis. Placed the Kumpe cath into the proximal abdominal aorta exchanged out for an 035 Amplatz wire and then I placed a 12 Sinhala sheath on the right. It is of note that the patient initially got 8000 units of heparin and then based upon ACT measurements during the main procedure received 500 units of heparin and then later in the procedure while working on the right groin he received an additional 1000 units of heparin. The main body device now was deployed from the left it was a 28.5 x 14.5 x 16 cm [place] excluder device. That was nicely deployed proximally with the pigtail catheter from the right groin taking image to assure good positioning the right at the orifice of the left renal artery. The contralateral gate was opened. Using the Kumpe cath from the right and Glidewire I gained access to the open gate. I then exchanged out for an 035 Amplatz wire. Placed a marking pigtail catheter and did a retrograde injection from the right groin sheath made measurements and selected the 14.5 x 14 cm contralateral limb. That was then positioned and deployed with slight according to assure that his ended short of the hypogastric on the right. Then the main body limb was deployed on the left again slightly according it to assure no incompetence of the internal iliac on the left. A retrograde shot was done on the left to assure prior to deployment. Now I placed a 27 mm compliant balloon and seated the graft. Replaced the pigtail catheter proximally and using 15 cc a second for 15 cc aortogram was obtained. This demonstrated no endoleak good positioning of the graft. There appeared to be resolution of the stenosis of the right proximal common iliac. There was some coiling kinking of the more distal right common iliac external iliac. This was felt to be secondary to the stiff wire and the sheath and upon withdrawing the sheath and removing the stiff wire that dramatically improved. Having now the graft seated in place no endoleak the right groin sheath was removed and the preclosed sutures were secured. This seemed to proceed without complication. I did a similar technique on the left side but there was still bleeding so I put her a third Perclose device on the left. However inspection of the feet revealed that the left foot appeared to be pink and viable with palpable pulse. The right foot appeared to be cool. I used Doppler ultrasound to demonstrate that at the site of the Perclose device on the right there appeared to be a high-speed jet stenosis. I then used 2% lidocaine as a local length and the small incision did a cutdown and upon identifying the artery and so doing there was some fibrous tissue that I cut and so doing it released the suture. I put peripheral vascular clamp on the artery proximally and a vessel loop distally the puncture hole arteriotomy was inspected there was no raised plaque or intimal flap. It appeared that external tissue had been caught up on placement of the suture as it was advanced causing external compression of the artery and upon releasing the Perclose device that was relieved. I returned. The arteriotomy with 2 simple sutures of 6-0 Prolene. Hemostasis was intact. Now the foot was inspected warm and viable with a nicely dopplerable DP pulse. The right groin wound was closed with a running 3-0 Vicryl 2 separate layers in a running septic of 4-0 Monocryl. Steri-Strips applied followed by Telfa and dry dressings. The left groin was closed with interrupted subdermal sutures of 4-0 Monocryl. Sponge and instrument and needle counts were reported to the surgeon to be correct. He tolerated the procedure well he was taken to the recovery area in satisfactory addition no apparent complication. Specimens none. Drains none. Blood loss 200 cc. Tani Galvan M.D., F.A.C.S. Type of Anesthesia: MAC/Supplemental/Local Anesthesiologist: Louis Rivers
--- NOTE | 2020-09-01 10:42 | PCM.DC ---
Documented by User: Dr. Tani Galvan MD 09/01/20 10:43 Discharge Instructions Diet Discharge Diet: Light diet - advance as tolerated (if you have questions about your diet instructions, please talk to you doctor.) Activity Discharge Activity: May Not Drive (for 3-5 days or while taking narcotic pain medicine.) May shower in (days): 1 Lifting Restrictions: 10 pounds Dressing / Incision Call your doctor if your incision/area has: Continuous Slow Oozing, Sudden Increased Bleeding, Increased Pain/ Swelling, Increased Redness and Foul Smelling Discharge Call your doctor if you observe: Fever of 101 or Higher Suture Line Care: Avoid Pulling/Pushing and Avoid Pinching/Bending Additional Dressing/Incision Instructions:: Change or remove dressing in 3 days. Leave steri-strips in place for 1 week. Follow Up Care Please Follow Up With: Tani Galvan MD When: Call [phone] to make an appointment to be seen in about 10 days. This will be with HOSSEIN Niño Test Results: Test results from this visit will be discussed in further detail at your follow-up appointment, if applicable. Discharge Plan Admission Admit Date/Time: 09/01/20 05:33 Attending Provider: Tani Galvan Primary Care Provider: You Pizarro Discharge Orders/Prescriptions Prescriptions: Continued pravastatin 40 mg tablet 40 mg PO QHS RF: 0 meloxicam 15 mg tablet 15 mg PO DAILY RF: 0 aspirin [Adult Aspirin Regimen] 81 mg tablet,delayed release (DR/EC) 81 mg PO DAILY RF: 0 Referrals / Follow Up: You Pizarro MD [Primary Care Provider] - Disposition Disposition (needs filled in before D/C Order can be placed): Home, self care Documented by User: Evelyne CATALAN PA-C 09/02/20 08:47 Discharge Plan Admission Admit Date/Time: 09/01/20 05:33 Attending Provider: Tani Galvan Primary Care Provider: You Pizarro Discharge Orders/Prescriptions Prescriptions: Continued pravastatin 40 mg tablet 40 mg PO QHS RF: 0 meloxicam 15 mg tablet 15 mg PO DAILY RF: 0 aspirin [Adult Aspirin Regimen] 81 mg tablet,delayed release (DR/EC) 81 mg PO DAILY RF: 0 Referrals / Follow Up: You Pizarro MD [Primary Care Provider] - Disposition Disposition (needs filled in before D/C Order can be placed): Home, self care
[2020-09-01] MEDS: Lactated Ringers 1,000 ML 70 ML IV ×2 (12:21→16:17)
--- NOTE | 2020-09-01 13:14 | NURSING ---
hematoma noted in pt right groin, per dr. Galvan apply pressure for 45 min. pressure applied, Evelyne (HOSSEIN) additional 45 min pressure applied. hematoma reduced with pressures applied. .
--- NOTE | 2020-09-01 17:03 | PN.SURG_ITS ---
Subjective Subjective: Patient complains of pain at the very base of his scrotum. Otherwise he seems to be doing well. No nausea. No flatus. Objective Data Objective Data Vital Signs: Vital Signs Temp Pulse Resp BP Pulse Ox 97.8 F 59 L 18 109/63 94 09/01/20 15:50 09/01/20 15:50 09/01/20 15:50 09/01/20 15:50 09/01/20 15:50 Oxygen Flow Rate (L/min) 2 Oxygen Delivery Method Room Air Weight: 163 lb 9.328 oz Body Mass Index (BMI) 23.4 Intake & Output: Intake and Output for Last 24 Hours 08/30/20 08/31/20 09/01/20 23:59 23:59 23:59 Intake Total 381.33 / 381.33 Output Total 675 / 675 Balance -293.67 / -293.67 Lab / Micro Data Result Diagrams: 08/25/20 14:27 08/25/20 14:27 Physical Exam Cardio Cardio Narrative: Bilateral femoral pulses are intact. Bilateral popliteal pulses nice at 3+. Bilateral posterior tibials 3+. Both feet are appropriately warm and colored GI soft to palpation and non-tender Narrative: Selby catheter is in place. There is no drainage per urethra a lthough it was gently dilated to allow for passage of the Selby. Base of the scrotum at the area that the patient is pointing seems unremarkable. I do not see any erythema or mass or induration. Extremity Extremity Narrative: Bilateral groin dressings are clean dry intact supple Assessment & Plan Assessment/Plan (1) Abdominal aortic aneurysm (AAA): QUALIFIERS: Presence of rupture: without rupture Qualified Code(s): I71.4 - Abdominal aortic aneurysm, without rupture PLAN: I am pleased with his progress. The etiology to his scrotal pain is indeterminate. We did a very minimal urethral dilatation allow for placement of the Selby. Perhaps this is somehow related to his aortic stent graft. I am not seeing any swelling. We will check a urinalysis. The urine itself however appears clear. I am very pleased with both groins currently. I am actually very pleased with the vascular supply to his lower extremity and believe that the stent graft treatment of the proximal right common iliac stenosis is reflecting in better flow to the right foot currently. There appears to be no adverse effect from the requirement for the direct suture repair of the access site right common femoral. We will initiate mobilization. I anticipate ongoing study care. I will hold him clear liquids for tonight. Tani Galvan M.D., F.A.C.S.
[2020-09-01] MEDS: Lactated Ringers 1,000 ML 30 ML IV (18:05)
[2020-09-01] MEDS: Aspirin E.C. 81 MG Tablet PO (18:05)
[2020-09-01] MEDS: Ondansetron 4 MG/2 ML Vial IV (18:05)
[2020-09-01] MEDS: Aspirin 81 MG TAB.CHEW PO (18:11)
[2020-09-01 18:57] LABS: Color, Urine Yellow (Yellow); Glucose, Dipstick 250 mg/dl (Normal); Ketone-Dipstick Negative (Negative); Leukocyte Esterase-Dipstick 25 /ul (Negative); Nitrite-Dipstick Negative (Negative); Occult Blood-Urine 10 /ul (Negative); Protein-Dipstick 15 mg/dl (Negative); Urine Bilirubin Dipstick Negative (Negative); Urine Clarity Clear (Clear); Urine Urobilinogen Normal (Normal)
[2020-09-01] MEDS: Pravastatin 40 MG Tablet PO (21:16)
[2020-09-02] VITALS (8 sets, daily range): BP systolic 89–107; BP diastolic 55–67; PULSE 56–73; RESP 14–21; TEMP 36.6–36.7; O2SAT 92–95
[2020-09-02] MEDS: Acetaminophen 325 MG Tablet 650 MG PO (05:11)
--- NOTE | 2020-09-02 05:41 | PCM.PN.SRG ---
Subjective Subjective: Patient not able to rest well. He complains of hunger pains. He has had some flatus. No groin pain. The scrotal pain has markedly diminished. He claims his feet feel warm Objective Data Objective Data Vital Signs: Vital Signs Temp Pulse Resp BP Pulse Ox 97.9 F 66 14 96/67 93 09/02/20 05:00 09/02/20 05:00 09/02/20 05:00 09/02/20 05:00 09/02/20 05:00 Oxygen Flow Rate (L/min) 2 Oxygen Delivery Method Room Air Weight: 163 lb 9.328 oz Body Mass Index (BMI) 23.4 Intake & Output: Intake and Output for Last 24 Hours 08/31/20 09/01/20 09/02/20 23:59 23:59 23:59 Intake Total 1231.00 / 1331.00 640 / 640 Output Total 2325 / 2475 575 / 575 Balance -1094.00 / -1144.00 65 / 65 Lab / Micro Data Result Diagrams: 08/25/20 14:27 08/25/20 14:27 Labs: Laboratory Results - last 24 hr 09/01/20 18:45 Urine Color Yellow Urine Clarity Clear Urine pH 5.0 Ur Specific [place] 1.020 Urine Protein 15 H Urine Glucose (UA) 250 H Urine Ketones Negative Urine Occult Blood 10 H Urine Nitrite Negative Urine Bilirubin Negative Urine Urobilinogen Normal Ur Leukocyte Esterase 25 H Physical Exam Resp normal respiratory effort GI normal to inspection, nondistended, normoactive bowel sounds and soft to palpation Narrative: Bilateral groins clean and dry Extremity Extremity Narrative: Excellent bilateral femoral popliteal DP and PT pulses. The previously weak right foot pulses are now essentially symmetric with the left. Assessment & Plan Assessment/Plan (1) Abdominal aortic aneurysm (AAA): QUALIFIERS: Presence of rupture: without rupture Qualified Code(s): I71.4 - Abdominal aortic aneurysm, without rupture PLAN: Excellent progress. Will remove Selby and advance diet. The patient will mobilize. Anticipate discharge soon today. He has been given activity wound care instructions. In addition to the abdominal aortic aneurysm he had stenosis of the proximal right common iliac. The stent graft did improve that situation. His clinical exam of his right lower extremity suggest improve blood flow to the right leg. Tani Galvan M.D., F.A.C.S.
[2020-09-02 06:33] LABS: Hematocrit 34.4 % (40-54); Hemoglobin 11.4 g/dL (13.0-16.5); Mean Corp Hgb Conc 33.1 g/dL (32-36); Mean Corpuscular Hgb 30.2 pg (27.0-32.0); Mean Corpuscular Volume 91.2 fL (80-94); Mean Platelet Vol. 10.7 fl (6.2-12.0); Platelet Count 126 K/mm3 (150-450); RBC Distribution Width CV 12.6 % (11.6-14.6); RBC Distribution Width SD 42.1 fl (35.1-43.9); Red Blood Count 3.77 M/mm3 (4.6-6.2); White Blood Count 9.5 K/mm3 (4.4-11.0)
[2020-09-02 06:58] LABS: Anion Gap 4 (5-15); BUN 11 mg/dL (7-18); BUN/Creat Ratio 13.1 RATIO (10-20); Calcium,Total 7.8 mg/dL (8.5-10.1); Chloride 105 mmol/L (98-107); Creatinine, Serum 0.84 mg/dL (0.70-1.30); EST Glomerular Filtration Rate 96 mL/min (>60); Est Glom Filt Rate - Afr Amer 116 mL/min (>60); Estimated Creatinine Clearance 83.28 ml/min; Glucose 102 mg/dL (74-106); Sodium Level 136 mmol/L (136-145)
--- NOTE | 2020-09-02 08:57 | CASEMGMT ---
[facility] Assessment: Face to Face with pt for initial transition planning/care coordination assessment. RN YAHAIRA introduced self and role at [facility], pt voices understanding and consents to assessment. Pt is A/O x4 and answers all questions appropriately at this time. Pt lying in bed in no distress. Care providers, pharmacy, and demographics verified/updated. Admitting Dx: AAA Graft Stent PCP:Moira Specialists: Florin, cardio; Fatmata, surgeon Preferred Pharmacy: [facility] Insurance: [facility] Prescription Benefit: yes LNOK: Livia Alejandro, Living Arrangements: Pt lives with in a two story house with 2 steps to enter with a rail. Pt reports being I in ADL's and denies concerns at home. Transportation: Pt drives self and denies issues with transportation. DME/HHC/SNF: Pt denies having any DME at home, nor the need for. Pt denies HHC or SNF stays. Pt states no concerns with going home at time of dc. Pt states no further concerns/needs. Advised pt to ask CM if any further question/concerns/needs arise, voices understanding. Pt Goal: Home Plan: Home with support
--- NOTE | 2020-09-02 10:08 | PHA.DC.MR ---
Pharmacy Service has performed discharge medication reconciliation for this patient. The patient's discharge medication list was reviewed for discrepancies and discrepancies were resolved. Home Medications aspirin 81 mg tablet,delayed release 81 mg PO DAILY 03/12/19 pravastatin 40 mg tablet 40 mg PO QHS tablet 07/18/20 meloxicam 15 mg tablet 15 mg PO DAILY tab 08/28/20
== END 2020-09-02 11:55 | disposition home or self-care (01) | DRG 301 ==
LOC: ACINP 06:31 → PCU 09-02 08:40
PROVIDERS: Anesthesiology; Admitting Provider Surgery; PCP Family Medicine; Referring Provider Surgery; Visit Provider Surgery
PROC: 04WY3DZ Revision of Intraluminal Device in Lower Artery, Percutaneous Approach (ICD-10-PCS; principal; 2020-09-01 07:00)
DX: I71.4 Abdominal aortic aneurysm, without rupture (principal); J44.9 Chronic obstructive pulmonary disease, unspecified; F17.210 Nicotine dependence, cigarettes, uncomplicated; Z79.899 Other long term (current) drug therapy; Z79.82 Long term (current) use of aspirin
CPT/HCPCS: 34701; 34713; 34812; 36415; 71046; 80048; 81002; 82040; 83735; 84100; 85027; 86850; 86900; 86901; 87635; 93005; C9803; J7030; J7040; J7120; Q9967; C1725; C1760; C1769; C1894; J2405; J3490; U0002

== ENCOUNTER → 2020-10-24 09:05 | Outpatient (CLI) | payer MEDICARE, SELFPAY ==
[2020-09-10 10:08] VITALS: BMI 23.4
[2020-10-24 09:55] LABS: Absolute Neutrophil Count 3.4 X10^3/uL (2.0-7.7); Basophil# 0.04 X10^3/uL; Basophil% 0.6 % (0-1); Eosinophil# 0.37 X10^3/uL; Eosinophils% 5.1 % (0-5); Hematocrit 42.1 % (40-54); Hemoglobin 13.9 g/dL (13.0-16.5); Lymphocyte % 38.7 % (19-41); Mean Corpuscular Volume 90.7 fL (80-94); Mean Platelet Vol. 10.5 fl (6.2-12.0); Monocyte# 0.65 X10^3/uL; NRBC Flagged by Analyzer 0 % (0-5); Neutrophil # 3.36 X10^3/uL (2.7-7.7); Neutrophil % 46.3 % (47-70); Platelet Count 168 K/mm3 (150-450); RBC Distribution Width SD 43.1 fl (35.1-43.9); Red Blood Count 4.64 M/mm3 (4.6-6.2); White Blood Count 7.2 K/mm3 (4.4-11.0)
[2020-10-24 10:40] LABS: Cholesterol 104 mg/dL (200); High Density Lipoprotein 44 mg/dL; Triglycerides 53 mg/dL; Very Low Density Lipoprotein 11 mg/dL (5-40)
[2020-10-24 12:34] LABS: Microalbumin,Random Urine 15.4 mg/L (NO RANGE EST.); Microalbumin:Creatinine Ratio 14.3 mg/g CRE (<30 mg/g CRE)
== END ==
PROVIDERS: PCP Family Medicine; Visit Provider Family Medicine
DX: F17.200 Nicotine dependence, unspecified, uncomplicated (principal); I65.29 Occlusion and stenosis of unspecified carotid artery
CPT/HCPCS: 36415; 80061; 82043; 82570; 85025

== ENCOUNTER → 2020-11-10 11:35 | Outpatient (CLI) | payer MEDICARE, SELFPAY ==
[2020-09-10 10:08] VITALS: BMI 23.4
[2020-11-10 11:38] LABS: Bacteria 0 SEEN /hpf (None Seen); Mucous, Urine 0 SEEN /hpf (<or=2+); White Blood Cells 0 SEEN /hpf (0-5)
[2020-11-10 15:16] LABS: Color, Urine Yellow (Yellow); Glucose, Dipstick Normal (Normal); Ketone-Dipstick Negative (Negative); Leukocyte Esterase-Dipstick Negative /ul (Negative); Nitrite-Dipstick Negative (Negative); Occult Blood-Urine 10 /ul (Negative); Protein-Dipstick Negative (Negative); Specific Gravity, Urine 1.015 (1.002-1.030); Urine Bilirubin Dipstick Negative (Negative); Urine Clarity Sl. Cloudy (Clear); Urine Urobilinogen Normal (Normal)
[2020-11-10 15:24] LABS: Red Blood Cells-Urine 0-5 SEEN /hpf (0-5); Squamous Epithelial Cells - UA 0-5 SEEN /hpf (0-5)
== END ==
PROVIDERS: PCP Family Medicine; Visit Provider Family Medicine
DX: F17.200 Nicotine dependence, unspecified, uncomplicated (principal)
CPT/HCPCS: 81001

== ENCOUNTER → 2020-12-01 07:58 | Outpatient (CLI) | payer MEDICARE, SELFPAY ==
[2020-09-10 10:08] VITALS: BMI 23.4
--- NOTE | 2020-12-01 07:59 | CT_ITS ---
STUDY: CTA OF THE ABDOMINAL AORTA AND BILATERAL LOWER EXTREMITIES REASON FOR EXAM: Male, 70 years old. hx of AAA repair RADIATION DOSAGE (If Supplied By Facility): CTDIvol = ( 12.05 ) mGy, DLP = ( 467.53 ) mGycm TECHNIQUE: Axial CT angiography multi-detector data acquisition was obtained from the lung bases to the pubic symphysis following intravenous administration of IV 100mL Isovue-370. Axial images and MIP images were reconstructed from the axial data set. Post-processing of the angiographic images was performed, with multiplanar reformation and 3D reconstruction. Individualized dose optimization techniques were used for this CT. TECHNICAL QUALITY: Good COMPARISON: 07/14/2020 Descriptors of Narrowing: None (0%) Mild (< 50%) Moderate (50-70%) Severe (70-90%) Subtotal/Total Occlusion (90-100%) Non-Evaluable (technically non-diagnostic FINDINGS: Abdominal aorta: Interval treatment of abdominal aortic aneurysm with an aortic stent graft with no change in the diameter of the aneurysm measuring 4.2 cm. No contrast enhancement of the mural thrombus to suggest endoleak. Celiac and superior mesenteric arteries: No demonstrated narrowing. Inferior mesenteric artery: Occluded Right renal artery(arteries): No demonstrated narrowing. Left renal artery(arteries): There is mild diffuse narrowing. Right common iliac artery: Right limb of the stent graft is widely patent. Right external iliac artery: No demonstrated narrowing. Right internal iliac artery: No demonstrated narrowing. Left common iliac artery: Left limb of the stent graft is widely patent. Left external iliac artery: There is mild diffuse narrowing. Left internal iliac artery: There is mild diffuse narrowing. CT/CT ANGIO ABD&PEL W/O&W/DYE IMPRESSION: Interval placement of aortic stent graft without evidence of endoleak. Electronically Signed: Solitario Ivan MD at 13:58 EDT Tel , Service support ,
[2020-12-01 08:16] LABS: EGFR FINGERSTICK > 60.0000 mL/min (>60)
== END ==
PROVIDERS: PCP Family Medicine; Referring Provider Surgery; Visit Provider Surgery
DX: Z98.890 Other specified postprocedural states (principal)
CPT/HCPCS: 74174; Q9967

== ENCOUNTER → 2020-12-23 14:26 | Outpatient (CLI) | payer MEDICARE, SELFPAY | PROVIDERS: PCP Family Medicine; Visit Provider Family Medicine | DX: Z20.822 Contact with and (suspected) exposure to COVID-19 (principal) | CPT/HCPCS: 36415; 86769 ==

== ENCOUNTER → 2021-08-24 | Outpatient (CLI) | payer MEDICARE, SELFPAY ==
--- NOTE | 2021-08-24 11:40 | RAD_ITS ---
STUDY: X-RAY - LEFT SHOULDER REASON FOR EXAM: Male, 70 years old. PAIN TECHNIQUE: 4 view(s) of the shoulder. COMPARISON: None. FINDINGS: Normal glenohumeral articulation. Normal acromioclavicular joint. Normal acromion. Normal humeral head and visualized proximal humerus. The soft tissue structures are unremarkable. Normal visualized pulmonary apex. RAD/Shoulder min 2 Views IMPRESSION: No evidence of fracture or dislocation. Electronically Signed: Cody Zuniga MD at 3:30 EDT ,
[2021-08-24 15:31] LABS: Absolute Lymphocyte Count 3.04 X10^3/uL (0.83-4.51); Absolute Neutrophil Count 3.4 X10^3/uL (2.0-7.7); Basophil# 0.04 X10^3/uL; Basophil% 0.5 % (0-1); Eosinophil# 0.21 X10^3/uL; Eosinophils% 2.8 % (0-5); Hematocrit 47.3 % (40-54); Hemoglobin 15.4 g/dL (13.0-16.5); Lymphocyte # 3.04 X10^3/ul (0.83-4.51); Mean Corp Hgb Conc 32.6 g/dL (32-36); Mean Corpuscular Hgb 30.1 pg (27.0-32.0); Mean Corpuscular Volume 92.4 fL (80-94); Mean Platelet Vol. 11.2 fl (6.2-12.0); Monocyte# 0.88 X10^3/uL; Monocyte% 11.6 % (0-10); NRBC Flagged by Analyzer 0 % (0-5); Neutrophil # 3.41 X10^3/uL (2.7-7.7); Neutrophil % 44.8 % (47-70); Platelet Count 169 K/mm3 (150-450); RBC Distribution Width CV 12.7 % (11.6-14.6); RBC Distribution Width SD 43.4 fl (35.1-43.9); Red Blood Count 5.12 M/mm3 (4.6-6.2); White Blood Count 7.6 K/mm3 (4.4-11.0)
[2021-08-24 16:05] LABS: ALB/GLOB Ratio 1.2 RATIO (0.9-2.4); AST(SGOT) 25 U/L (15-37); Alanine Aminotransfer ALT/SGPT 30 U/L (16-61); Albumin, Serum 4.1 g/dL (3.2-5.0); Alkaline Phosphatase 64 U/L (45-117); Anion Gap 6 (5-15); BUN 13 mg/dL (7-18); BUN/Creat Ratio 12.3 RATIO (10-20); Calcium,Total 8.7 mg/dL (8.5-10.1); Chloride 104 mmol/L (98-107); Cholesterol 121 mg/dL (200); Creatinine, Serum 1.06 mg/dL (0.70-1.30); EST Glomerular Filtration Rate 73 mL/min (>60); Est Glom Filt Rate - Afr Amer 88 mL/min (>60); Globulin 3.4 g/dL (2.2-4.2); Glucose 85 mg/dL (74-106); High Density Lipoprotein 57 mg/dL; Potassium 4.3 mmol/L (3.5-5.1); Protein, Total 7.5 g/dL (6.4-8.2); Sodium Level 135 mmol/L (136-145); Triglycerides 66 mg/dL; Very Low Density Lipoprotein 13 mg/dL (5-40)
== END | disposition home or self-care (01) ==
PROVIDERS: PCP Family Medicine; Referring Provider Family Medicine; Visit Provider Family Medicine
DX: M25.512 Pain in left shoulder (principal); J44.9 Chronic obstructive pulmonary disease, unspecified; I65.29 Occlusion and stenosis of unspecified carotid artery
CPT/HCPCS: 73030; 80053; 80061; 85025

== ENCOUNTER → 2021-08-28 | Outpatient (CLI) | payer MEDICARE, SELFPAY ==
--- NOTE | 2021-08-28 07:57 | CDU_ITS ---
Reason For Study: Carotid stenosis Rt. Velocities/BP Lt. Velocities/BP Prox CCA 115.2/23.9 cm/sec. Prox CCA 89.3/16.8 cm/sec. Mid CCA 91.7/18.6 cm/sec. Mid CCA 75/13.5 cm/sec. Dist CCA 76/14.7 cm/sec. Dist CCA 67.3/17.9 cm/sec. Prox ICA 45.6/10.7 cm/sec. Prox ICA 59.3/17.6 cm/sec. Mid ICA 55.1/21.1 cm/sec. Mid ICA 61.8/22.5 cm/sec. Dist ICA 64.5/25.8 cm/sec. Dist ICA 64.2/24.9 cm/sec. Rt. ICA/CCA = 0.70. Lt. ICA/CCA = 0.86. Prox ECA 91.7/17.3 cm/sec. Prox ECA 99.8/16.3 cm/sec. Rt. Vert. 49.4/14.5 cm/sec. Lt. Vert. 33.4/9.9 cm/sec. Right Extracranial There is homogeneous, smooth atherosclerotic plaque noted in the right common carotid artery. There is intimal thickening but no significant atherosclerotic plaque noted in the right internal carotid artery. There is no significant atherosclerotic plaque noted in the right external carotid artery. Antegrade flow is noted in the right vertebral artery. Left Extracranial There is homogeneous, smooth atherosclerotic plaque noted in the left common carotid artery. There is heterogeneous, irregular atherosclerotic plaque noted in the left internal carotid artery. There is intimal thickening but no significant atherosclerotic plaque noted in the left external carotid artery. Antegrade flow is noted in the left vertebral artery. Procedure Carotid Duplex [id number]. This is a Carotid Duplex examination using B-mode, color flow and specral Doppler. Exam performed in department. VL/Carotid Duplex Ultrasound Interpretation Summary Intimal thickening proximal right internal carotid artery with less than 50% st enosis Less than 50% stenosis right external carotid artery Minimal calcific plaque at the proximal left internal carotid artery with less than 50% stenosis Less than 50% stenosis left external carotid artery Patent and antegrade vertebral arteries bilaterally No significant change from the previous examination of February 13, 2020 Ordering Physician: You Pizarro Referring Physician: You Pizarro Performed By: Kylie Baca RVT
== END | disposition home or self-care (01) ==
PROVIDERS: PCP Family Medicine; Visit Provider Family Medicine
DX: I65.23 Occlusion and stenosis of bilateral carotid arteries (principal); I71.4 Abdominal aortic aneurysm, without rupture
CPT/HCPCS: 93880

== ENCOUNTER → 2021-12-15 | Outpatient (CLI) | payer MEDICARE, SELFPAY ==
[2020-12-04 06:34] VITALS: BMI 23.4
--- NOTE | 2021-12-15 08:59 | AAVD_ITS ---
[id number] VL^AAVD^Abd Aortic/IVC Duplex scan [id number] Reason For Study: AAA Aorta Measurements Aorta Doppler Measurements Proximal aorta measures2.02 x 2.04cm. in cross- Peak systolic flow velocities within the proximal sectional axis. aorta measure 70.5 cm/sec. Proximal aorta measures2.03cm. in longitudinal Peak systolic flow velocities within the mid aorta axis. measure 42.4 cm/sec. Mid aorta measures2.38 x 2.35cm. in cross- Distal aorta, limb 1, 43.5 cm/sec. sectional axis. Distal aorta, limb 2, 31.9 cm/sec. Mid aorta measures2.36cm. in longitudinal axis. Distal aorta, limb 1, 1.24 x 1.24 x 1.22 cm. Distal aorta, limb 2, 1.21 x 1.21 x 1.17 cm. Distal aorta, residual sac, 3.27 x 3.85 x 3.37 cm. Left Iliac Artery Left iliac artery measures 1.22 x 1.25 cm. in the cross-sectional axis. Left iliac artery measures 1.25 cm. in the longitudinal axis. Peak systolic velocity in the left iliac artery measures 31.1 cm/sec. Right Iliac Artery Right iliac artery measures 1.21 x 1.22 cm. in the cross-sectional axis. Right iliac artery measures 1.22 cm. in the longitudinal axis. Peak systolic velocity in the right iliac artery measures 52 cm/sec. Procedure Aorta IVC Iliac vasculature or bypass grafts [id number]. Exam performed in department. VL/Abd Aortic/IVC Duplex scan Interpretation Summary Maximal aortic aneurysm sac diameter at 3.27 x 3.85 cm Patent bilateral stent graft limbs Maximal proximal aortic dimension 2.02 x 2.04 cm in diameter Normal velocity flow within the aortic stent graft. Findings are very favorable as compared to the previous study of February 12 Ordering Physician: Tani Galvan MD Referring Physician: You Pizarro Performed By: Kylie Baca RVT
== END | disposition home or self-care (01) ==
LOC: CVS 08:58
PROVIDERS: PCP Family Medicine; Referring Provider Surgery; Visit Provider Surgery
DX: I71.4 Abdominal aortic aneurysm, without rupture (principal)
CPT/HCPCS: 93978

== ENCOUNTER → 2022-04-08 | Outpatient (CLI) | payer MEDICARE, SELFPAY ==
[2022-04-08 10:04] LABS: Absolute Lymphocyte Count 3.51 X10^3/uL (0.83-4.51); Absolute Neutrophil Count 3.9 X10^3/uL (2.0-7.7); Basophil# 0.03 X10^3/uL; Basophil% 0.4 % (0-1); Eosinophils% 2.4 % (0-5); Hematocrit 47.2 % (40-54); Hemoglobin 15.3 g/dL (13.0-16.5); Lymphocyte # 3.51 X10^3/ul (0.83-4.51); Lymphocyte % 41.6 % (19-41); Mean Corp Hgb Conc 32.4 g/dL (32-36); Mean Corpuscular Hgb 29.9 pg (27.0-32.0); Mean Corpuscular Volume 92.4 fL (80-94); Mean Platelet Vol. 10.7 fl (6.2-12.0); Monocyte# 0.81 X10^3/uL; Monocyte% 9.6 % (0-10); NRBC Flagged by Analyzer 0 % (0-5); Neutrophil # 3.85 X10^3/uL (2.7-7.7); Neutrophil % 45.6 % (47-70); Platelet Count 123 K/mm3 (150-450); RBC Distribution Width CV 13.3 % (11.6-14.6); RBC Distribution Width SD 45.7 fl (35.1-43.9); Red Blood Count 5.11 M/mm3 (4.6-6.2); White Blood Count 8.4 K/mm3 (4.4-11.0)
[2022-04-08 10:28] LABS: Vitamin B12 339 pg/mL (211-911); Vitamin D,25 Hydroxy 34.4 ng/mL
[2022-04-08 11:18] LABS: ALB/GLOB Ratio 1.3 RATIO (0.9-2.4); AST(SGOT) 20 U/L (15-37); Alanine Aminotransfer ALT/SGPT 30 U/L (16-61); Albumin, Serum 3.9 g/dL (3.2-5.0); Alkaline Phosphatase 73 U/L (45-117); Anion Gap 10 (5-15); BUN 16 mg/dL (7-18); BUN/Creat Ratio 15.4 RATIO (10-20); Calcium,Total 9.2 mg/dL (8.5-10.1); Chloride 106 mmol/L (98-107); Creatinine, Serum 1.04 mg/dL (0.70-1.30); EST Glomerular Filtration Rate 74 mL/min (>60); Est Glom Filt Rate - Afr Amer 90 mL/min (>60); Globulin 3.1 g/dL (2.2-4.2); Glucose 109 mg/dL (74-106); Potassium 4.3 mmol/L (3.5-5.1); Sodium Level 138 mmol/L (136-145); T4 Free Direct 1.18 ng/dL (0.76-1.46)
[2022-04-09 14:15] LABS: Hemoglobin A1c 5.9 % (3.8-5.6)
== END | disposition home or self-care (01) ==
LOC: MFPLAB 08:44
PROVIDERS: PCP Family Medicine; Referring Provider Family Medicine; Visit Provider Family Medicine
DX: R73.09 Other abnormal glucose (principal); R53.83 Other fatigue
CPT/HCPCS: 36415; 80053; 82306; 82607; 83036; 84439; 84443; 85025

== ENCOUNTER 2023-04-04 08:48 | Outpatient (CLI) | payer MEDICARE, SELFPAY ==
--- NOTE | 2023-04-04 08:54 | AAVD_ITS ---
Reason For Study: AAA w/repair Aorta Measurements Aorta Doppler Measurements Proximal aorta measures2.10 x 1.98cm. in cross- Peak systolic flow velocities within the proximal sectional axis. aorta measure 75.9 cm/sec. Proximal aorta measures2.08cm. in longitudinal Peak systolic flow velocities within the mid aorta axis. measure 49.3 cm/sec. Mid aorta measures2.72 x 2.70cm. in cross- Distal aorta, limb 1, 31.8 cm/sec. sectional axis. Distal aorta, limb 2, 51.5 cm/sec. Mid aorta measures2.62cm. in longitudinal axis. Distal aorta, limb 1, 1.14 x 1.15 x 1.18 cm. Distal aorta, limb 2, 1.12 x 1.12 x 1.17 cm. Distal aorta, residual sac, 3.34 x 3.45 x 3.42 cm. Left Iliac Artery Left iliac artery measures 1.37 x 1.30 cm. in the cross-sectional axis. Left iliac artery measures 1.32 cm. in the longitudinal axis. Peak systolic velocity in the left iliac artery measures 37.3 cm/sec. Right Iliac Artery Right iliac artery measures 1.33 x 1.30 cm. in the cross-sectional axis. Right iliac artery measures 1.28 cm. in the longitudinal axis. Peak systolic velocity in the right iliac artery measures 51.5 cm/sec. Procedure Aorta IVC Iliac vasculature or bypass grafts [id number]. Exam performed in department. VL/Abd Aortic/IVC Duplex scan Interpretation Summary Evidence of infrarenal abdominal aortic aneurysm repair with an endograft Proximal abdominal aorta measures 2.1 x 1.98 cm diameter Maximal mid aortic dimensions 2.72 x 2.7 cm with dinner Residual diameter of the abdominal aortic sac is 3.34 x 3.45 x 3.42 cm Normal aortic flow velocities Left common iliac artery measures 1.37 x 1.3 cm in diameter Right common iliac measures 1.33 x 1.3 cm diameter No vascular flow is identified within the remnant aneurysm sac Previously on December 15, 2021 the remnant aortic sac of the aneurysm measured Distal aorta, residual sac, 3.27 x 3.85 x 3.37 cm. Ordering Physician: Tani Galvan Referring Physician: You Pizarro Performed By: Kylie Baca RVT
== END 2023-04-04 23:59 | disposition home or self-care (01) ==
LOC: CVS 08:51
PROVIDERS: PCP Family Medicine; Visit Provider Surgery
DX: I71.43 Infrarenal abdominal aortic aneurysm, without rupture (principal)
CPT/HCPCS: 93978

== ENCOUNTER → 2023-04-07 | Outpatient (CLI) | payer MEDICARE, SELFPAY ==
[2023-04-07 15:21] LABS: Absolute Lymphocyte Count 2.54 X10^3/uL (0.83-4.51); Absolute Neutrophil Count 3.4 X10^3/uL (2.0-7.7); Basophil# 0.05 X10^3/uL; Basophil% 0.7 % (0-1); Eosinophil# 0.24 X10^3/uL; Eosinophils% 3.4 % (0-5); Hematocrit 48.7 % (40-54); Hemoglobin 15.7 g/dL (13.0-16.5); Lymphocyte # 2.54 X10^3/ul (0.83-4.51); Lymphocyte % 36.1 % (19-41); Mean Corp Hgb Conc 32.2 g/dL (32-36); Mean Corpuscular Hgb 30.4 pg (27.0-32.0); Mean Corpuscular Volume 94.4 fL (80-94); Mean Platelet Vol. 11.2 fl (6.2-12.0); Monocyte# 0.79 X10^3/uL; Monocyte% 11.2 % (0-10); NRBC Flagged by Analyzer 0 % (0-5); Neutrophil % 48.5 % (47-70); Platelet Count 168 K/mm3 (150-450); RBC Distribution Width CV 13.7 % (11.6-14.6); RBC Distribution Width SD 47.8 fl (35.1-43.9); Red Blood Count 5.16 M/mm3 (4.6-6.2)
[2023-04-07 16:10] LABS: AST(SGOT) 25 U/L (15-37); Alanine Aminotransfer ALT/SGPT 21 U/L (16-61); Albumin, Serum 3.5 g/dL (3.2-5.0); Alkaline Phosphatase 72 U/L (45-117); Anion Gap 3 (5-15); BUN 17 mg/dL (7-18); BUN/Creat Ratio 17.2 RATIO (10-20); Calcium,Total 8.8 mg/dL (8.5-10.1); Chloride 110 mmol/L (98-107); Cholesterol 123 mg/dL (200); Creatinine, Serum 0.99 mg/dL (0.70-1.30); EST Glomerular Filtration Rate 78 mL/min (>60); Est Glom Filt Rate - Afr Amer 95 mL/min (>60); Globulin 3.5 g/dL (2.2-4.2); Glucose 91 mg/dL (74-106); High Density Lipoprotein 55 mg/dL; PSA,Total - Annual Screen 2.33 ng/mL (0.00-4.00); Potassium 4.4 mmol/L (3.5-5.1); Sodium Level 138 mmol/L (136-145); Triglycerides 53 mg/dL; Very Low Density Lipoprotein 11 mg/dL (5-40)
[2023-04-07 16:15] LABS: Hemoglobin A1c 5.6 % (3.8-5.6)
== END | disposition home or self-care (01) ==
LOC: MFPLAB 12:03
PROVIDERS: PCP Family Medicine; Visit Provider Family Medicine
DX: R73.09 Other abnormal glucose (principal); J44.9 Chronic obstructive pulmonary disease, unspecified; I71.40 Abdominal aortic aneurysm, without rupture, unspecified; Z12.5 Encounter for screening for malignant neoplasm of prostate
CPT/HCPCS: 36415; 80053; 80061; 83036; 84153; 85025; G0103

== ENCOUNTER → 2023-04-12 | Outpatient (CLI) | payer MEDICARE, SELFPAY ==
--- NOTE | 2023-04-12 14:25 | CT_ITS ---
STUDY: LOW DOSE CT LUNG CANCER SCREENING REASON FOR EXAM: Male, 72 years old. NICOTINE DEPENDENCE. Patient smoked 1 pack per day for 50 years. RADIATION DOSAGE (If Supplied By Facility): CTDIvol = ( 2.22 ) mGy, DLP = ( 82.89 ) mGycm TECHNIQUE: No contrast was administered. Low dose technique was utilized (average mAS-38 and kVp 120). 1.25 mm axial source images with a slice interval of 1.25-mm were reconstructed in lung windows. 2.5 mm axial source images with a slice interval of 2.5-mm were reconstructed in lung windows. 5.0 mm axial source images with a slice interval of 5.0-mm were reconstructed in soft tissue windows. COMPARISON: Comparison is made with prior study dated March 02, 2019. NODULES: Stable 7 mm nodule in the medial aspect of the left temporal and axial image #41. Stable 9 mm well-defined nodule in the posterior aspect of the right upper lobe as seen on axial image #39. This is pleural based. Emphysema: Hyperinflation. Emphysematous changes. Stable scarring in the posterior upper lobes. Endobronchial lesion: None Aorta: Atherosclerotic plaque formation of the aortic arch. CORONARY ARTERIES: Coronary artery calcification is seen. Heart: Unremarkable Pulmonary artery: Unremarkable Mediastinal nodes: Small benign-appearing mediastinal lymph nodes. Other chest and abdominal findings: CT/Low Dose CT Lung Screening IMPRESSION: Lung-RADS category 2 - Continue annual screening with LDCT in 12 months. IMPORTANT NOTES FOR USE: ACR Lung-RADS Version 1.1 Assessment Categories Release Date: 2018 Category: Coded 0-4 bases on nodule(s) with highest degree of suspicion. Negative screen is defined as categories 1 and 2; a positive screen is defined as categories 3 and 4. Category 3 and 4A nodules that are unchanged on interval CT should be coded as category 2, and individuals returned to screening in 12 months. Category 4X: Category 3 or 4 nodules with additional imaging findings that increase the suspicion of lung cancer, such as spiculation, GGN that doubles in size in 1 year, enlarged lymph notes, etc. Category Modifiers: S (significant finding unrelated to lung cancer) Electronically Signed: Santana Jeronimo MD at 15:27 EST ,
== END | disposition home or self-care (01) ==
LOC: CT 14:23
PROVIDERS: PCP Family Medicine; Referring Provider Family Medicine; Visit Provider Family Medicine
DX: Z12.2 Encounter for screening for malignant neoplasm of respiratory organs (principal); F17.219 Nicotine dependence, cigarettes, with unspecified nicotine-induced disorders
CPT/HCPCS: 71271

== ENCOUNTER 2023-04-22 20:50 | Emergency (ER) | payer MEDICARE, SELFPAY ==
[2023-04-22 20:52] VITALS: BP 119/77; PULSE 92; RESP 15; TEMP 37.4; O2SAT 96; BMI 23.1
[2023-04-22 21:43] VITALS: BP 117/75; PULSE 85; RESP 16; TEMP 37.6; O2SAT 95
--- NOTE | 2023-04-22 22:03 | EDS_ITS ---
HPI History of Present Illness Chief Complaint: General Illness Informant: patient Onset/Context/Timing Onset: Today Timing: Continuous Current Severity: Mild Maximum Severity: Mild Narrative Narrative: 72-year-old male history of AAA with aortic stent presents with URI symptoms today with fever and chills and a nonproductive cough. Denies vomiting or diarrhea. No dysuria. No abdominal pain. Prior similar symptoms: Yes Recent Illness/Hospitalization: No PFSH PFSH Medical History Abdominal aortic aneurysm (AAA) Basal cell carcinoma COPD (chronic obstructive pulmonary disease) Left carotid artery stenosis Nicotine dependence Shortness of breath on exertion Smoker Wears glasses Home Medications aspirin 81 mg tablet,delayed release (Adult Aspirin Regimen) 81 mg PO DAILY Check with primary doctor 03/12/19 [History Last Taken Unknown] rosuvastatin 20 mg tablet 20 mg PO QHS 03/11/21 [History Last Taken Unknown] Allergy/AdvReac Type Severity Reaction Status Date / Time Penicillins Allergy RASH Verified 04/22/23 20:55 Sulfa (Sulfonamide Allergy RASH Verified 04/22/23 20:55 Antibiotics) Family History Other Adopted Surgical History H/O wrist surgery History of endovascular stent graft for abdominal aortic aneurysm (AAA) (09/01/20) History of shoulder surgery History of tonsillectomy and adenoidectomy History of umbilical hernia repair History of vasectomy 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 Review of Systems ROS Unobtainable: Denies due to encephalopathy Constitutional Constitutional ED: Reports chills and fever(s) Eyes Eyes: Denies blurry vision ENT ENT ED: Denies ear pain, rhinorrhea or sore throat Cardiovascular Cardiovascular: Denies chest pain, palpitations or racing heartbeat Respiratory/Chest Respiratory/Chest: Reports cough; Denies dyspnea Gastrointestinal Gastrointestinal: Denies abdominal pain, constipation, diarrhea, melena, nausea or vomiting Genitourinary Genitourinary ED: Denies dysuria or hematuria Musculoskeletal Musculoskeletal: Denies arthralgias, back pain, myalgias or neck pain Integumentary Denies abscess or Abrasions Neurologic Neurologic: Denies headache(s) Psychiatric Psychiatric: Denies anxiety or depression Endocrine Endocrinology: Denies cold intolerance or heat intolerance Hematologic/Lymphatic Hematologic/Lymphatic: Reports none Allergic/Immunologic Allergic/Immunologic ED: Denies mouth swelling, tongue swelling or urticaria EXAM Physical Exam Narrative Exam Narrative: 72-year-old male vital signs stable temperature 99.6. He does not look septic or toxic. His pulse ox is 96% on room air no hypoxia. H EENT exam moist mucous membranes. Otherwise unremarkable. Neck nontender no lymphadenopathy. Lungs dry cough no rales, rhonchi or wheezing. Equal and symmetrical. No respiratory distress. Heart regular rhythm rate about 85 no murmur. Chest wall nontender. Abdomen soft nontender. Back nontender. Moving all 4 extremities. Normal strength. No edema. Neurologically is awake and alert with no focal motor deficits. Const Vital Signs: 04/22/23 20:52 04/22/23 21:41 04/22/23 21:43 Temperature 99.3 F H 99.6 F H Temperature Source Temporal Oral Pulse Rate 92 85 Respiratory Rate 15 16 Respiratory Effort Normal Respiratory Pattern Normal Blood Pressure 119/77 117/75 Blood Pressure Mean 91 89 Pulse Ox 96 95 Oxygen Delivery Method Room Air Room Air 04/22/23 22:18 Temperature 98.1 F Temperature Source Oral Pulse Rate 85 Respiratory Rate 16 Respiratory Effort Respiratory Pattern Blood Pressure 119/67 Blood Pressure Mean 84 Pulse Ox 95 Oxygen Delivery Method Room Air Positive well nourished and well developed; Negative for obese, cachectic, contractures or unkempt General Appearance ED: well developed and NAD; Negative for unkempt, cachectic, contractures, cyanotic, diaphoretic or pallor Nutritional Appearance: Negative for cachectic or obese HEENT Reports moist mucous membranes; Denies dry mucous membranes Negative for trauma or tenderness Mouth ED: No dry mucous membranes Mouth: No dry mucous membranes Eyes PERRL and EOMs intact bilaterally General Eye ED: Negative for pale conjunctiva or scleral icterus Neck no lymphadenopathy, supple and no JVD General: Negative for tenderness Lymph Lymphatic: Negative for other Chest Wall inspection of chest normal and palpation of chest normal Chest: Negative for other Resp normal respiratory effort and clear to auscultation bilaterally Resp Narrative: Dry cough. Effort and Inspection: Negative for retractions Auscultation: Negative for rales, rhonchi or wheezes Cardio regular rate, regular rhythm, S1 normal heart sound, S2 normal heart sound and no murmurs Palpation: palpable S4 Rate: Negative for bradycardia or tachycardic Rhythm: Negative for abnormal rhythm GI normal to inspection, nondistended, normoactive bowel sounds, non-tender, non- distended and no masses Inspection: Negative for abdominal distention Auscultation: normoactive bowel sounds Palpation: soft; Negative for tender, guarding, mass or rebound tenderness present Back/Spine no CVA tenderness General Back: Negative for CVA tenderness Cervical Spine: Negative for cervical spine tenderness Thoracic Spine / Upper Back: Negative for thoracic spinal tenderness or paraspinal muscle tenderness Lumbar Spine / Lower Back: Negative for lumbar spinal tenderness Extremity normal to inspection General Extremety ED: Negative for edema, tenderness or other findings General Extremity: Negative for edema or other findings Neuro oriented x3, CN's II-XII intact bilaterally and no sensory deficits noted Sensorium / Orientation: alert; Negative for orientation impaired, lethargic or stuporous Motor Exam: strength 5/5 throughout Psych mental status grossly normal Appearance: Negative for unkempt Attitude: No agitated Mood & Affect: Negative for depressed, anxious or tearful Skin no rashes or lesions noted and no wounds General Skin Exam: Negative for jaundice or pallor Lesions: No lesion noted Rashes: No rashes noted Trauma: Negative for abrasion Wounds: Negative for wounds noted MDM MDM MDM Narrative Medical decision making narrative: 72-year-old male most likely has a viral URI either COVID flu RSV or another. He will be tested. Chest x-ray. Screening labs. IV fluids. Tylenol. Clinically does not look significantly ill. He definitely does not look septic or toxic. Repeat exam patient is doing well at 10:38 PM. COVID-positive. Blood work unremarkable. He received a liter of fluid here. Patient is comfortable being discharged home. History & Record Review Discussion w/independent historian: Patient Additional record(s) reviewed:: Prior inpatient record, Prior outpatient record, Prior ED visit and Prior labs Lab Data Attestation: I reviewed the patient's lab results. Lab results narrative: CBC shows a white count 8. H&H 14 and 44. Platelets are slightly low at 145. Chemistries show a gap of 4 normal BUN of 13 creatinine 1. Glucose 105. COVID-positive. Flu and RSV negative. Chest x-ray negative. Labs: Laboratory Results - last 24 hr 04/22/23 22:12 WBC 8.2 RBC 4.80 Hgb 14.6 Hct 44.4 MCV 92.5 MCH 30.4 MCHC 32.9 RDW Std Deviation 45.1 H RDW Coeff of Sean 13.2 Plt Count 145 L MPV 10.3 Immature Gran % (Auto) 0.100 Neut % (Auto) 74.9 H Lymph % (Auto) 9.4 L [place] % (Auto) 14.8 H Eos % (Auto) 0.6 Baso % (Auto) 0.2 Absolute Neuts (auto) 6.1 Absolute Lymphs (auto) 0.77 L Nucleated RBC % 0 Sodium 136 Potassium 4.1 Chloride 105 Carbon Dioxide 27.0 Anion Gap 4 L BUN 13 Creatinine 1.02 Estim Creat Clear Calc 65.60 Est GFR (MDRD) Af Amer 92 Est GFR (MDRD) Non-Af 76 BUN/Creatinine Ratio 12.7 Glucose 105 Calcium 8.6 Radiography Chest X-Ray - ED: 1 View, Read by ED Physician, Normal, Heart, Lungs, Mediastinum, Bony Structures, No Acute Disease and Chronic Changes Diagnostic Testing: Clinical Impression(s) from Imaging Studies Chest X-Ray 04/22/23 22:30 IMPRESSION: Normal x-ray examination of the chest. Electronically Signed: Solitario Ivan MD at 22:56 EST , Chest x-ray, portable, single view shows no acute abnormality. Interpreted by myself. Normal cardiac silhouette. Normal lung mcdaniels. No effusions. Discharge Plan Triage Chief Complaint: General Illness ED Provider: Stanton Hernandez Dx/Rx/DC Orders Clinical Impression: COVID Instructions: Human Coronaviruses Prescriptions: No Action rosuvastatin 20 mg tablet 20 mg PO QHS Patient Comments: take 1 tablet by mouth nightly aspirin [Adult Aspirin Regimen] 81 mg tablet,delayed release (DR/EC) 81 mg PO DAILY Patient Comments: pt states he clarified with Dr Galvan that he should not stop taking aspirin for surgery Primary Care Provider: You Pizarro Referrals: You Pizarro MD [Primary Care Provider] - 1 Week if not improving Activity Restrictions/Additional Instructions: Plenty of fluids and rest. Tylenol for fever. May also use Motrin. Follow-up with your doctor if not improving in a week. Disposition Disposition: Home, Self Care
[2023-04-22] MEDS: 0.9% Normal Saline (1000mL) 1,000 ML 1000 ML IV (22:15)
[2023-04-22] MEDS: Acetaminophen 500 MG Tablet 1000 MG PO (22:16)
[2023-04-22 22:18] VITALS: BP 119/67; PULSE 85; RESP 16; TEMP 36.7; O2SAT 95
[2023-04-22 22:23] LABS: Absolute Lymphocyte Count 0.77 X10^3/uL (0.83-4.51); Absolute Neutrophil Count 6.1 X10^3/uL (2.0-7.7); Basophil# 0.02 X10^3/uL; Basophil% 0.2 % (0-1); Eosinophil# 0.05 X10^3/uL; Eosinophils% 0.6 % (0-5); Hematocrit 44.4 % (40-54); Hemoglobin 14.6 g/dL (13.0-16.5); Lymphocyte # 0.77 X10^3/ul (0.83-4.51); Lymphocyte % 9.4 % (19-41); Mean Corp Hgb Conc 32.9 g/dL (32-36); Mean Corpuscular Hgb 30.4 pg (27.0-32.0); Mean Corpuscular Volume 92.5 fL (80-94); Mean Platelet Vol. 10.3 fl (6.2-12.0); Monocyte# 1.21 X10^3/uL; Monocyte% 14.8 % (0-10); NRBC Flagged by Analyzer 0 % (0-5); Neutrophil # 6.09 X10^3/uL (2.7-7.7); Neutrophil % 74.9 % (47-70); Platelet Count 145 K/mm3 (150-450); RBC Distribution Width CV 13.2 % (11.6-14.6); RBC Distribution Width SD 45.1 fl (35.1-43.9); White Blood Count 8.2 K/mm3 (4.4-11.0)
--- NOTE | 2023-04-22 22:30 | RAD_ITS ---
STUDY: X-RAY CHEST REASON FOR EXAM: Male, 72 years old. cough TECHNIQUE: Single AP portable view of the chest. COMPARISON: 08/29/2020 FINDINGS: The lungs are clear and expanded. There is no demonstrated pleural abnormality. Normal size heart. Normal mediastinum and kenyatta. Normal visualized pulmonary arteries. Normal visualized aortic arch and descending thoracic aorta. Normal visualized thoracic spine. Normal visualized ribs, clavicles, and shoulders. There is no demonstrated abnormality of the visualized soft tissue structures of the upper abdomen. RAD/Chest 1 View (Portable) IMPRESSION: Normal x-ray examination of the chest. Electronically Signed: Solitario Ivan MD at 22:56 EST ,
[2023-04-22 22:55] LABS: Anion Gap 4 (5-15); BUN 13 mg/dL (7-18); BUN/Creat Ratio 12.7 RATIO (10-20); Calcium,Total 8.6 mg/dL (8.5-10.1); Chloride 105 mmol/L (98-107); Creatinine, Serum 1.02 mg/dL (0.70-1.30); EST Glomerular Filtration Rate 76 mL/min (>60); Est Glom Filt Rate - Afr Amer 92 mL/min (>60); Glucose 105 mg/dL (74-106); Potassium 4.1 mmol/L (3.5-5.1); Sodium Level 136 mmol/L (136-145)
[2023-04-22 23:00] VITALS: BP 104/70; PULSE 78; RESP 16; O2SAT 96
[2023-04-22 23:48] VITALS: BP 104/70; PULSE 85; RESP 18; O2SAT 95
== END 2023-04-22 23:49 | disposition home or self-care (01) ==
PROVIDERS: Emergency Provider Emergency Medicine; PCP Family Medicine; Referring Provider Emergency Medicine; Visit Provider Emergency Medicine
DX: U07.1 COVID-19 (principal); J44.9 Chronic obstructive pulmonary disease, unspecified; F17.210 Nicotine dependence, cigarettes, uncomplicated; Z79.82 Long term (current) use of aspirin; Z79.899 Other long term (current) drug therapy
CPT/HCPCS: 71045; 80048; 85025; 87631; 96360; 99282; J7030; A4216

== ENCOUNTER → 2023-05-09 | Outpatient (CLI) | payer MEDICARE, SELFPAY ==
--- NOTE | 2023-05-09 12:32 | STRESSREP_ITS ---
Stress Test Report Exercise myocardial perfusion stress test. 72-year-old man with a history of chest pain Stress protocol: Resting EKG demonstrates normal sinus rhythm with a rate of 54 bpm resting blood pressure is 118/74 mmHg. The patient exercised according to the regular Kb protocol for a total duration of 7 minutes and 30 seconds attaining a maximum heart rate of 139 bpm which was 95% of maximum predicted heart rate; the maximum workload was 10.1 metabolic equivalents. At rest there were no ST or T wave changes noted to suggest ischemia and at peak exercise upsloping ST changes only were noted which did not meet the criteria for ischemia. No clinical angina was noted the test was terminated due to the target heart rate being achieved/fatig ue. The peak blood pressure was 162/60 mmHg. Rate-pressure product was 17,000. Myocardial perfusion protocol. 7.8 mCi of technetium 99m sestamibi was injected at rest. The patient exercised according to regular Kb protocol for total duration of 7 minutes and 30 and at peak exercise 33.5 mCi of technetium 99m sestamibi was injected stress images were obtained stress and rest images were reconstructed in comparing the short axis vertical long and horizontal long axis. Gated images were also obtained. Perfusion SPECT analysis: Review of the stress images demonstrate normal uptake of tracer noted in all areas of the myocardium. The resting images similarly demonstrate normal uptake of tracer noted in all areas of the myocardium. No areas of reversibility are noted to suggest ischemia no previous infarct was noted. Gated SPECT analysis: The gated ejection fraction is 69%. Conclusion: Normal exercise myocardial perfusion stress test at a high workload Preserved ejection fraction.
== END | disposition home or self-care (01) ==
PROVIDERS: PCP Family Medicine; Referring Provider Internal Medicine Cardiovascular Disease; Visit Provider Internal Medicine Cardiovascular Disease
DX: R07.9 Chest pain, unspecified (principal); I71.40 Abdominal aortic aneurysm, without rupture, unspecified; F17.210 Nicotine dependence, cigarettes, uncomplicated
CPT/HCPCS: 78452; 93017; A9500; A4216

== ENCOUNTER → 2023-09-29 | Outpatient (CLI) | payer MEDICARE, SELFPAY ==
[2023-09-29 15:36] LABS: Absolute Lymphocyte Count 2.77 X10^3/uL (0.83-4.51); Absolute Neutrophil Count 3.3 X10^3/uL (2.0-7.7); Basophil# 0.04 X10^3/uL; Basophil% 0.5 % (0-1); Eosinophil# 0.38 X10^3/uL; Eosinophils% 5.1 % (0-5); Hematocrit 47.1 % (40-54); Hemoglobin 15.4 g/dL (13.0-16.5); Lymphocyte # 2.77 X10^3/ul (0.83-4.51); Lymphocyte % 37.3 % (19-41); Mean Corp Hgb Conc 32.7 g/dL (32-36); Mean Corpuscular Hgb 30.4 pg (27.0-32.0); Mean Corpuscular Volume 92.9 fL (80-94); Mean Platelet Vol. 10.9 fl (6.2-12.0); Monocyte# 0.92 X10^3/uL; Monocyte% 12.4 % (0-10); NRBC Flagged by Analyzer 0 % (0-5); Neutrophil # 3.31 X10^3/uL (2.7-7.7); Neutrophil % 44.6 % (47-70); Platelet Count 161 K/mm3 (150-450); RBC Distribution Width CV 13.1 % (11.6-14.6); RBC Distribution Width SD 44.1 fl (35.1-43.9); Red Blood Count 5.07 M/mm3 (4.6-6.2); White Blood Count 7.4 K/mm3 (4.4-11.0)
[2023-09-29 16:05] LABS: ALB/GLOB Ratio 1.1 RATIO (0.9-2.4); AST(SGOT) 20 U/L (15-37); Alanine Aminotransfer ALT/SGPT 27 U/L (16-61); Albumin, Serum 3.6 g/dL (3.2-5.0); Alkaline Phosphatase 77 U/L (45-117); Anion Gap 6 (5-15); BUN 15 mg/dL (7-18); BUN/Creat Ratio 13.6 RATIO (10-20); Calcium,Total 8.9 mg/dL (8.5-10.1); Chloride 107 mmol/L (98-107); Cholesterol 141 mg/dL (200); EST Glomerular Filtration Rate 69 mL/min (>60); Est Glom Filt Rate - Afr Amer 84 mL/min (>60); Globulin 3.4 g/dL (2.2-4.2); Glucose 101 mg/dL (74-106); High Density Lipoprotein 55 mg/dL; Potassium 4.6 mmol/L (3.5-5.1); Sodium Level 137 mmol/L (136-145); Triglycerides 43 mg/dL; Very Low Density Lipoprotein 9 mg/dL (5-40)
[2023-09-29 17:06] LABS: Hemoglobin A1c 5.7 % (3.8-5.6)
== END | disposition home or self-care (01) ==
LOC: MFPLAB 12:05
PROVIDERS: PCP Family Medicine; Visit Provider Family Medicine
DX: R73.02 Impaired glucose tolerance (oral) (principal); I65.29 Occlusion and stenosis of unspecified carotid artery
CPT/HCPCS: 36415; 80053; 80061; 83036; 85025

== ENCOUNTER → 2023-10-19 | Outpatient (CLI) | payer MEDICARE, SELFPAY ==
--- NOTE | 2023-10-19 08:50 | AAAS_ITS ---
Reason For Study: AAA repair Aorta Measurements Aorta Doppler Measurements Proximal aorta measures2.3cm x 1.69cm. in cross- Peak systolic flow velocities within the proximal sectional axis. aorta measure 69.9 cm/sec. Proximal aorta measures2.0cm. in longitudinal Peak systolic flow velocities within the mid aorta axis. measure 51.2 cm/sec. Mid aorta measures2.67x 2.57cm. in cross-sectionalRight Limb 46.8cm/sec Left limb 31.3 cm/sec. axis. Mid aorta measures2.49cm. in longitudinal axis. Distal aorta, limb 1,1.22 x 1.08 x.1.07 cm. Distal aorta, limb 2, 1.27 x 1.02 x 1.37 cm. Distal aorta, residual sac, 3.55 x 3.52 x 3.36 cm. Left Iliac Artery Left iliac artery measures .75 cm. in the cross-sectional axis. Left iliac artery measures .8 cm. in the longitudinal axis. Peak systolic velocity in the left iliac artery measures 114.9 cm/sec. Right Iliac Artery Right iliac artery measures 1.1x 1.24cm cm. in the longitudinal axis. Right iliac artery measures 1.1 x 1.24 cm. in the cross-sectional axis. Peak systolic velocity in the right iliac artery measures 151.1 cm/sec. Procedure Aorta IVC Iliac vasculature or bypass grafts [id number]. Exam performed in department. VL/AAA Screening Interpretation Summary History of infrarenal abdominal aortic stent graft repair with residual aortic sac measuring 3.55 x 3.52 x 3.36 cm in diameter Patent limbs of the graft with normal velocity Maximal proximal aortic diameter 2.3 x 1.69 cm Left common 0.75 x 0.8 cm diameter Right common iliac 1.1 x 1.24 cm diameter Previously on April 04, 2023 the residual sac dimensions were felt to be 3.3 4 x 3.45. x 3.4 2 cm in diameter. The edges somewhat blurred on current imaging and likely unchanged . 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 Consider follow-up aortic duplex at 1 year Ordering Physician: You Pizarro Referring Physician: You Pizarro Performed By: Patricia Ramsay RVT
--- NOTE | 2023-10-19 08:50 | CDU_ITS ---
Reason For Study: SALO Rt. Velocities/BP Lt. Velocities/BP Prox CCA 124.7/35.3 cm/sec. Prox CCA 120.4/36.3 cm/sec. Mid CCA 92.5/26.2 cm/sec. Mid CCA 100.3/32.7 cm/sec. Dist CCA 86.3/23.7 cm/sec. Dist CCA 82.0/30.9 cm/sec. Prox ICA 55.3/26.7 cm/sec. Prox ICA 83.4/33.0 cm/sec. Mid ICA 58.6/30.0 cm/sec. Mid ICA 66.2/29.3 cm/sec. Dist ICA 66.3/33.3 cm/sec. Dist ICA 61.3/28.1 cm/sec. Rt. ICA/CCA = 0.72. Lt. ICA/CCA = 0.83. Prox ECA 88.8/22.5 cm/sec. Prox ECA 74.7/18.1 cm/sec. Rt. Vert. 37.9/15.2 cm/sec. Lt. Vert. 46.5/15.8 cm/sec. Right Extracranial There is intimal thickening but no significant atherosclerotic plaque noted in the right common carotid artery. There is intimal thickening but no significant atherosclerotic plaque noted in the right internal carotid artery. There is heterogeneous, irregular atherosclerotic plaque noted in the right external carotid artery. Antegrade flow is noted in the right vertebral artery. Left Extracranial There is intimal thickening but no significant atherosclerotic plaque noted in the left common carotid artery. There is heterogeneous, irregular atherosclerotic plaque noted in the left internal carotid artery. There is intimal thickening but no significant atherosclerotic plaque noted in the left external carotid artery. Antegrade flow is noted in the left vertebral artery. Procedure Carotid Duplex [id number]. This is a Carotid Duplex examination using B-mode, color flow and specral Doppler. Exam performed in department. VL/Carotid Duplex Ultrasound Interpretation Summary Intimal thickening at the proximal right internal carotid artery with less than 50% stenosis Less than 50% stenosis right external carotid artery Minimal irregular calcific plaque at the proximal left internal carotid artery with less than 50% stenosis Less than 50% stenosis left external carotid artery Patent and antegrade vertebral arteries bilaterally No change from August 28, 2021 Ordering Physician: You Pizarro Referring Physician: You Pizarro Performed By: Patricia Ramsay RVT
== END | disposition home or self-care (01) ==
LOC: CVS 08:48
PROVIDERS: PCP Family Medicine; Referring Provider Family Medicine; Visit Provider Family Medicine
DX: I65.23 Occlusion and stenosis of bilateral carotid arteries (principal); I71.40 Abdominal aortic aneurysm, without rupture, unspecified
CPT/HCPCS: 76706; 93880

== ENCOUNTER → 2024-05-02 | Outpatient (CLI) | payer MEDICARE, SELFPAY ==
[2024-05-02 15:04] LABS: Absolute Lymphocyte Count 2.73 X10^3/uL (0.83-4.51); Absolute Neutrophil Count 5.1 X10^3/uL (2.0-7.7); Basophil# 0.04 X10^3/uL; Basophil% 0.4 % (0-1); Eosinophil# 0.26 X10^3/uL; Eosinophils% 2.8 % (0-5); Hematocrit 48.7 % (40-54); Hemoglobin 15.3 g/dL (13.0-16.5); Lymphocyte # 2.73 X10^3/ul (0.83-4.51); Lymphocyte % 29.8 % (19-41); Mean Corp Hgb Conc 31.4 g/dL (32-36); Mean Corpuscular Hgb 29.4 pg (27.0-32.0); Mean Corpuscular Volume 93.5 fL (80-94); Mean Platelet Vol. 11.8 fl (6.2-12.0); Monocyte# 1.02 X10^3/uL; Monocyte% 11.1 % (0-10); NRBC Flagged by Analyzer 0 % (0-5); Neutrophil # 5.09 X10^3/uL (2.7-7.7); Neutrophil % 55.7 % (47-70); Platelet Count 145 K/mm3 (150-450); RBC Distribution Width CV 12.8 % (11.6-14.6); RBC Distribution Width SD 44.1 fl (35.1-43.9); Red Blood Count 5.21 M/mm3 (4.6-6.2); White Blood Count 9.2 K/mm3 (4.4-11.0)
[2024-05-02 15:42] LABS: AST(SGOT) 20 U/L (15-37); Alanine Aminotransfer ALT/SGPT 19 U/L (16-61); Albumin, Serum 3.7 g/dL (3.2-5.0); Alkaline Phosphatase 83 U/L (45-117); Anion Gap 6 (5-15); BUN 16 mg/dL (7-18); BUN/Creat Ratio 16.2 RATIO (10-20); Calcium,Total 9.1 mg/dL (8.5-10.1); Chloride 107 mmol/L (98-107); Cholesterol 131 mg/dL (200); Creatinine, Serum 0.99 mg/dL (0.70-1.30); EST Glomerular Filtration Rate 79 mL/min (>60); Est Glom Filt Rate - Afr Amer 95 mL/min (>60); Globulin 3.8 g/dL (2.2-4.2); Glucose 91 mg/dL (74-106); High Density Lipoprotein 56 mg/dL; PSA,Total - Annual Screen 1.68 ng/mL (0.00-4.00); Potassium 4.1 mmol/L (3.5-5.1); Protein, Total 7.5 g/dL (6.4-8.2); Sodium Level 138 mmol/L (136-145); Triglycerides 49 mg/dL; Very Low Density Lipoprotein 10 mg/dL (5-40)
[2024-05-02 16:57] LABS: Hemoglobin A1c 5.7 % (3.8-5.6)
== END | disposition home or self-care (01) ==
LOC: MFPLAB 11:17
PROVIDERS: PCP Family Medicine; Referring Provider Family Medicine; Visit Provider Family Medicine
DX: I65.29 Occlusion and stenosis of unspecified carotid artery (principal); R73.02 Impaired glucose tolerance (oral); Z12.5 Encounter for screening for malignant neoplasm of prostate
CPT/HCPCS: 36415; 80053; 80061; 83036; 84153; 85025; G0103

== ENCOUNTER → 2024-05-05 | Outpatient (CLI) | payer MEDICARE, SELFPAY ==
--- NOTE | 2024-05-05 07:48 | CT_ITS ---
STUDY: LOW DOSE CT LUNG CANCER SCREENING REASON FOR EXAM: Male, 73 years old. Smoker, 53 year current smoker x 1 ppd, COPD RADIATION DOSAGE (If Supplied By Facility): CTDIvol = ( 3.02 ) mGy, DLP = ( 115.88 ) mGycm TECHNIQUE: No contrast was administered. Low dose technique was utilized (average mAS-38 and kVp 120). 1.25 mm axial source images with a slice interval of 1.25-mm were reconstructed in lung windows. 2.5 mm axial source images with a slice interval of 2.5-mm were reconstructed in lung windows. 5.0 mm axial source images with a slice interval of 5.0-mm were reconstructed in soft tissue windows. COMPARISON: Comparison is made with prior study dated April 12, 2023. NODULES: Stable 6.7 mm pleural-based nodule in the left upper lobe as seen on axial image #45. Stable 9 mm well-defined nodule in the posterior aspect of the right upper lobe as seen on axial image #45. Emphysema: Hyperinflation. Emphysematous changes. Stable scarring in the upper lobes posteriorly. Endobronchial lesion: None Aorta: Atherosclerotic plaque formation of the aortic arch. CORONARY ARTERIES: Coronary artery calcification is seen. Heart: Pulmonary artery: Unremarkable Mediastinal nodes: Small benign-appearing mediastinal lymph nodes. Other chest and abdominal findings: CT/Low Dose CT Lung Screening IMPRESSION: Lung-RADS category 2 - Continue annual screening with LDCT in 12 months. IMPORTANT NOTES FOR USE: ACR Lung-RADS Version 1.1 Assessment Categories Release Date: 2018 Category: Coded 0-4 bases on nodule(s) with highest degree of suspicion. Negative screen is defined as categories 1 and 2; a positive screen is defined as categories 3 and 4. Category 3 and 4A nodules that are unchanged on interval CT should be coded as category 2, and individuals returned to screening in 12 months. Category 4X: Category 3 or 4 nodules with additional imaging findings that increase the suspicion of lung cancer, such as spiculation, GGN that doubles in size in 1 year, enlarged lymph notes, etc. Category Modifiers: S (significant finding unrelated to lung cancer) Electronically Signed: Santana Jeronimo MD at 14:34 EST ,
== END | disposition home or self-care (01) ==
LOC: CT 07:47
PROVIDERS: PCP Family Medicine; Referring Provider Family Medicine; Visit Provider Family Medicine
DX: F17.219 Nicotine dependence, cigarettes, with unspecified nicotine-induced disorders (principal)
CPT/HCPCS: 71271

== ENCOUNTER → 2024-05-25 | Outpatient (CLI) | payer MEDICARE, SELFPAY ==
--- NOTE | 2024-05-25 08:51 | AAVD_ITS ---
Reason For Study: AAA s/p EVAR Aorta Measurements Aorta Doppler Measurements Proximal aorta measures2.36cm x 1.94cm. in cross- Peak systolic flow velocities within the proximal sectional axis. aorta measure 85 cm/sec. Proximal aorta measures2.46cm. in longitudinal Peak systolic flow velocities within the mid aorta axis. measure 64 cm/sec. Mid aorta measures2.46cm x 2.61cm. in cross- Distal aorta, limb 1: 33cm/s sectional axis. Distal aorta, limb 2: 44cm/s. Mid aorta measures2.37cm. in longitudinal axis. Distal aorta, limb 1: 1.13cm x 1.15cm x 1.24cm Distal aorta, limb 2: 1.19cm x 1.15cm x 1.11cm Distal aorta, residual sac: 3.72cm x 3.98cm x 3.54cm. Left Iliac Artery Left iliac artery measures 1.28cm x 1.40 cm. in the cross-sectional axis. Left iliac artery measures 1.16 cm. in the longitudinal axis. Peak systolic velocity in the left iliac artery measures 60 cm/sec. Right Iliac Artery Right iliac artery measures 1.41cm x 1.44 cm. in the cross-sectional axis. Right iliac artery measures 1.37 cm. in the longitudinal axis. Peak systolic velocity in the right iliac artery measures 67 cm/sec. Procedure Aorta IVC Iliac vasculature or bypass grafts [id number]. Exam performed in department. VL/Abd Aortic/IVC Duplex scan Interpretation Summary Patent aortic endograft with normal velocities and no evidence of stenosis. Residual aneurysm sac 3.98 cm with no endoleak visualized. Ordering Physician: Malena Benavidez Referring Physician: You Pizarro Performed By: Ansley Heath, KANE, RVT
== END | disposition home or self-care (01) ==
LOC: CVS 08:49
PROVIDERS: PCP Family Medicine; Referring Provider Surgery Trauma Surgery; Visit Provider Surgery Trauma Surgery
DX: Z48.812 Encounter for surgical aftercare following surgery on the circulatory system (principal)
CPT/HCPCS: 93978

== ENCOUNTER → 2024-06-19 | Outpatient (CLI) | payer MEDICARE, SELFPAY ==
--- NOTE | 2024-06-19 07:54 | CT_ITS ---
PROCEDURE: CTA ABD/PELVIS W/WO CONTRAST REASON FOR EXAM: History of abdominal aortic aneurysm with endoluminal stent grafting.. COMPARISON: None. TECHNIQUE: CTA imaging of the abdomen and pelvis with intravenous contrast. 3D reconstructions. IV CONTRAST: 100 cc of Isovue 370. FINDINGS: Endovascular Stent Graft: Proximal attachment: Infrarenal abdominal aorta. Distal attachment (right): Common iliac artery Distal attachment (left): Common iliac artery. Maximum sac size: 2.7 cm x 2.5 cm Endoleak: No evidence of endoleak. Aorta: Abdominal aortic aneurysm status-post stent graft repair. Calcific plaques. Iliac Arteries: Ectatic. Celiac: Normal SMA: Normal ELIZABETH : Occluded proximally Right Renal: Normal Left Renal: Calcific plaque at the origin of the left renal artery. Other Findings: Scattered sigmoid diverticula. Prosthetic enlargement with indentation of the bladder base. Unremarkable CT/CTA Abd/Pelvis W/WO Contrast IMPRESSION: Status post endoluminal stent grafting of the abdominal aortic aneurysm. There is no evidence of endoleak. One or more dose reduction techniques were used (e.g., Automated exposure contr ol, adjustment of the mA and/or kV according to patient size, use of iterative reconstruction technique). Reading Location: [facility]
== END | disposition home or self-care (01) ==
LOC: CT 07:54
PROVIDERS: PCP Family Medicine; Referring Provider Physician Assistant; Visit Provider Physician Assistant
DX: I71.40 Abdominal aortic aneurysm, without rupture, unspecified (principal)
CPT/HCPCS: 74174; Q9967

== ENCOUNTER → 2024-10-11 | Outpatient (CLI) | payer MEDICARE, SELFPAY ==
[2024-10-11 15:15] LABS: Absolute Lymphocyte Count 2.43 X10^3/uL (0.83-4.51); Absolute Neutrophil Count 4.4 X10^3/uL (2.0-7.7); Basophil# 0.04 X10^3/uL; Basophil% 0.5 % (0-1); Eosinophil# 0.17 X10^3/uL; Eosinophils% 2.2 % (0-5); Hematocrit 45.9 % (40-54); Hemoglobin 15.6 g/dL (13.0-16.5); Lymphocyte # 2.43 X10^3/ul (0.83-4.51); Lymphocyte % 31.5 % (19-41); Mean Corpuscular Hgb 30.6 pg (27.0-32.0); Mean Corpuscular Volume 90.2 fL (80-94); Mean Platelet Vol. 11.2 fl (6.2-12.0); Monocyte# 0.66 X10^3/uL; Monocyte% 8.5 % (0-10); NRBC Flagged by Analyzer 0 % (0-5); Neutrophil # 4.41 X10^3/uL (2.7-7.7); Neutrophil % 57.2 % (47-70); Platelet Count 162 K/mm3 (150-450); RBC Distribution Width CV 12.8 % (11.6-14.6); RBC Distribution Width SD 42.5 fl (35.1-43.9); Red Blood Count 5.09 M/mm3 (4.6-6.2); White Blood Count 7.7 K/mm3 (4.4-11.0)
[2024-10-11 15:57] LABS: Hemoglobin A1c 5.7 % (<=5.6)
[2024-10-11 16:05] LABS: ALB/GLOB Ratio 1.4 RATIO (0.9-2.4); AST(SGOT) 22 U/L (<=37); Alanine Aminotransfer ALT/SGPT 8 U/L (<=46); Albumin, Serum 4.2 g/dL (3.4-4.8); Alkaline Phosphatase 89 U/L (40-129); Anion Gap 12 (5-15); BUN 15 mg/dL (4-19); BUN/Creat Ratio 15.9 RATIO (10-20); CPK Total, Creatine Kinase 91 U/L (24-195); Calcium,Total 9.3 mg/dL (7.6-11.0); Carbon Dioxide 24.1 mmol/L (21.0-32.0); Chloride 102 mmol/L (98-108); Cholesterol 140 mg/dL (<=200); Creatinine, Serum 0.97 mg/dL (0.70-1.20); EST Glomerular Filtration Rate 82 (>60); Ferritin 338 ng/mL (37-417); Globulin 2.9 g/dL (2.2-4.2); Glucose 134 mg/dL (70-99); High Density Lipoprotein 48 mg/dL; Low Density Lipoprotein Calc. 77 mg/dL; Magnesium 2.3 mg/dL (1.5-2.2); Potassium 4.3 mmol/L (3.3-5.1); Protein, Total 7.1 g/dL (5.9-8.4); Sodium Level 138 mmol/L (133-145); Total Bilirubin 0.71 mg/dL (0.00-1.30); Triglycerides 73 mg/dL; Very Low Density Lipoprotein 15 mg/dL (5-40); cholesterol:hdl ratio screen 2.89
== END | disposition home or self-care (01) ==
LOC: MFPLAB 12:16
PROVIDERS: PCP Family Medicine; Referring Provider Family Medicine; Visit Provider Family Medicine
DX: I65.29 Occlusion and stenosis of unspecified carotid artery (principal); J44.9 Chronic obstructive pulmonary disease, unspecified; M79.10 Myalgia, unspecified site; R73.02 Impaired glucose tolerance (oral)
CPT/HCPCS: 36415; 80053; 80061; 82550; 82728; 83036; 83735; 85025

== ENCOUNTER → 2024-10-16 | Outpatient (CLI) | payer MEDICARE, SELFPAY ==
--- NOTE | 2024-10-16 07:59 | AAAS_ITS ---
Reason For Study Reason For Study: AAA Aorta Measurements Aorta Doppler Measurements Proximal aorta measures2.44cm x 2.30cm. in cross-sectional Peak systolic flow velocities within the proximal aorta axis. measure 72 cm/sec. Proximal aorta measures2.29cm. in longitudinal axis. Peak systolic flow velocities within the mid aorta measure Mid aorta measures2.06cm x 2.09cm. in cross-sectional axis. 90 cm/sec. Mid aorta measures1.94cm. in longitudinal axis. Peak systolic flow velocities within the distal aorta Distal aorta measures2.88cm x 3.17cm. in cross-sectional measure 46 cm/sec. axis. Distal aorta measures2.54cm. in longitudinal axis. Distal aorta, limb 1: 1.20cm x 1.28cm x 1.28cm Distal aorta, limb 2: 1.18cm x 1.10cm x 1.19cm Distal aorta, residual sac: 3.03cm x 3.85cm. Left Iliac Artery Left iliac artery measures 1.31cm x 1.27 cm. in the cross-sectional axis. Left iliac artery measures 1.28 cm. in the longitudinal axis. Peak systolic velocity in the left iliac artery measures 38 cm/sec. Right Iliac Artery Right iliac artery measures 1.47cm x 1.54 cm. in the cross-sectional axis. Right iliac artery measures 1.20 cm. in the longitudinal axis. Peak systolic velocity in the right iliac artery measures 53 cm/sec. Procedure Aorta IVC Iliac vasculature or bypass grafts [id number]. Exam performed in department. VL/AAA Screening Interpretation Summary Patent aortic endograft with normal velocities and no evidence of stenosis. Residual aneurysm sac 3.85 cm with no endoleak visualized. Ordering Physician: You Pizarro Referring Physician: You Pizarro Performed By: Ansley Heath, KANE, RVT
--- NOTE | 2024-10-16 07:59 | CDU_ITS ---
Reason For Study Reason For Study: Carotid Stenosis Rt. Velocities/BP Lt. Velocities/BP Prox CCA 116/31 cm/sec. Prox CCA 90/24 cm/sec. Mid CCA 89/27 cm/sec. Mid CCA 73/23 cm/sec. Dist CCA 69/27 cm/sec. Dist CCA 66/21 cm/sec. Prox ICA 47/22 cm/sec. Prox ICA 54/20 cm/sec. Mid ICA 55/28 cm/sec. Mid ICA 71/30 cm/sec. Dist ICA 67/28 cm/sec. Dist ICA 61/28 cm/sec. Rt. ICA/CCA = 0.8. Lt. ICA/CCA = 1.0. Prox ECA 78/19 cm/sec. Prox ECA 83/17 cm/sec. Rt. Vert. 49/20 cm/sec. Lt. Vert. 43/14 cm/sec. Right Extracranial There is heterogeneous, irregular atherosclerotic plaque noted in the right common carotid artery. There is intimal thickening but no significant atherosclerotic plaque noted in the right internal carotid artery. There is intimal thickening but no significant atherosclerotic plaque noted in the right external carotid artery. Antegrade flow is noted in the right vertebral artery. Left Extracranial There is intimal thickening but no significant atherosclerotic plaque noted in the left common carotid artery. There is heterogeneous, irregular atherosclerotic plaque noted in the left internal carotid artery. There is intimal thickening but no significant atherosclerotic plaque noted in the left external carotid artery. Antegrade flow is noted in the left vertebral artery. Procedure Carotid Duplex [id number]. This is a Carotid Duplex examination using B-mode, color flow and specral Doppler. Exam performed in department. VL/Carotid Duplex Ultrasound Interpretation Summary Normal right extracranial internal carotid. Mild (<50%) stenosis left extracranial internal carotid. Patent and antegrade vertebrals bilaterally. Ordering Physician: You Pizarro Referring Physician: You Pizarro Performed By: Ansley Heath, RDCS, RVT
== END | disposition home or self-care (01) ==
LOC: CVS 07:57
PROVIDERS: PCP Family Medicine; Referring Provider Family Medicine; Visit Provider Family Medicine
DX: I65.23 Occlusion and stenosis of bilateral carotid arteries (principal); I71.40 Abdominal aortic aneurysm, without rupture, unspecified
CPT/HCPCS: 76706; 93880